=== PATIENT | female | born 1985 | race Caucasian/White ===

== ENCOUNTER 2017-08-04 19:29 | Inpatient (IN) | payer BC ==
--- NOTE | 2017-08-04 19:43 | PDOC ---
History of Present Illness - General Stated Complaint: SOB Time Seen by Provider: 08/04/17 19:38 - History of Present Illness Initial Comments: 08/04/17 20:36 32 yo F with h/o HTN, anxiety disorder, and anorexia nervosa, who arrives BIBA from outside facility, and urgent care w/ SOB. Patient reports 3 weeks of SOB at rest and increased Reyes. Patient states she had recent dx. of acute bronchitis one week ago w/ no underlying lung dz. asthma/COPD. Symptoms have been refractory to duoneb and steroid therapy. On azithromycin for gastroparesis. Now with retrosternal chest pressure, and wheezing. Denies N/V, F /C, cough, leg swelling. Denies tobacco use. Denies h/o DVT/PE, calf tenderness , hemoptysis, pleuritic chest pain, immobilization, travel, trauma or surgery w/ in 6 weeks, OCP use, hypercoaguable disorder, or malignancy. Reports h/o multiple chest CT scans to r/o esophageal perforation and as part of HTN workup. Denies abdominal pain, urinary complaints, diarrhea,constipation, lightheadedness, weakness, sensory changes. Past History - Past Medical History Allergies/Adverse Reactions: Allergies Allergy/AdvReac Type Severity Reaction Status Date / Time lamotrigine [From Lamictal] Allergy Verified 08/04/17 21:22 Home Medications: Ambulatory Orders Azithromycin 250 mg PO DAILY 08/04/17 Clonazepam [Klonopin] 1.25 mg PO BID 08/04/17 Desvenlafaxine Succinate [Pristiq ER] 25 mg PO DAILY 08/04/17 Fluvoxamine Maleate [Luvox -] 25 mg PO DAILY 08/04/17 Lisinopril 5 mg PO PRN 08/04/17 Spironolactone 25 mg PO DAILY 08/04/17 Review of Systems - Review of Systems Comments:: 08/04/17 19:42 GENERAL/CONSTITUTIONAL: No fever or chills. No weakness. HEAD, EYES, EARS, NOSE AND THROAT: No change in vision. No ear pain or discharge. No sore throat. CARDIOVASCULAR: + chest pain and shortness of breath RESPIRATORY: + SOB. No cough, or hemoptysis. GASTROINTESTINAL: No nausea, vomiting, diarrhea or constipation. GENITOURINARY: No dysuria, frequency, or change in urination. MUSCULOSKELETAL: No joint or muscle swelling or pain. No neck or back pain. SKIN: No rash NEUROLOGIC: No headache, vertigo, loss of consciousness, or change in strength/ sensation. ENDOCRINE: No increased thirst. No abnormal weight change HEMATOLOGIC/LYMPHATIC: No anemia, easy bleeding, or history of blood clots. ALLERGIC/IMMUNOLOGIC: No hives or skin allergy. *Physical Exam - Vital Signs Last Vital Signs Temp Pulse Resp BP Pulse Ox 98.6 F 110 H 20 144/124 100 08/04/17 20:02 08/05/17 02:49 08/05/17 02:01 08/05/17 02:49 08/05/17 02:01 - Physical Exam Comments: 08/04/17 19:42 GENERAL: Anxious appearing and tremulous. Awake, alert, and fully oriented. HEAD: No signs of trauma, normocephalic, atraumatic EYES: PERRLA, EOMI, sclera anicteric, conjunctiva clear ENT: Hearing grossly normal, nares patent, oropharynx clear without exudates. Moist mucosa NECK: Normal ROM, supple, no lymphadenopathy, JVD, or masses LUNGS: Diffuse insp lung sounds. Absent stridor. Speaks full sentences. HEART: Regular rate and rhythm, normal S1 and S2, no murmurs, rubs or gallops, peripheral pulses normal and equal bilaterally. EXTREMITIES : Normal inspection, Normal range of motion, no edema. No clubbing or cyanosis. SKIN: Warm, Dry, normal turgor, no rashes or lesions noted ED Treatment Course - LABORATORY CBC & Chemistry Diagram: 08/05/17 00:10 08/05/17 00:10 - ADDITIONAL ORDERS Additional order review: Laboratory Results 08/05/17 08/05/17 08/04/17 02:30 00:10 21:00 Anticoagulation Therapy No Result Required. Puncture Site No Result Required. ABG pH 7.31 L ABG pCO2 at Pt Temp 44.0 ABG pO2 at Pt Temp 235.0 H* ABG HCO3 21.7 L ABG O2 Sat (Measured) 99.2 H ABG O2 Content 20.3 ABG Base Excess -4.0 L Michael Test No Result Required. Carboxyhemoglobin 0.4 L Methemoglobin 1.1 O2 Delivery Device No Result Required. Oxygen Flow Rate No Result Required. Vent Mode No Result Required. Vent Rate No Result Required. Mechanical Rate No Result Required. Pressure Support Vent No Result Required. Sodium 136 Potassium 3.7 Chloride 98 Carbon Dioxide 27 Anion Gap 11 BUN 13 Creatinine 0.7 Creat Clearance w eGFR > 60 Random Glucose 176 H Calcium 8.5 Total Bilirubin 0.2 AST 13 L ALT 28 Alkaline Phosphatase 55 Total Protein 7.6 Albumin 4.0 Urine Color Straw Urine Appearance Clear Urine pH 7.0 Ur Specific [place] 1.010 Urine Protein Negative Urine Glucose (UA) Negative Urine Ketones Negative Urine Blood Negative Urine Nitrite Negative Urine Bilirubin Negative Urine Urobilinogen Negative Ur Leukocyte Esterase Negative Urine HCG, Qual Negative 08/05/17 00:10 RBC 4.45 MCV 97.1 H MCHC 34.5 RDW 11.5 L MPV 7.9 Neutrophils % 95.2 H Lymphocytes % 4.0 L Monocytes % 0.6 L Eosinophils % 0.0 Basophils % 0.2 - RADIOLOGY Radiology Studies Ordered: Category Date Time Status CHEST CTA [CT] Stat CT Scan 08/05/17 00:06 Taken CXRPORT [CHEST X-RAY PORTABLE*] [RAD] Stat Radiology 08/04/17 21:29 Taken - Medications Given in the ED: ED Medications Discontinued Medications Generic Name Dose Route Start Last Admin Trade Name Freq PRN Reason Stop Dose Admin Albuterol/Ipratropium 1 amp 08/04/17 20:45 08/04/17 23:25 Duoneb - NEB 08/04/17 21:31 1 amp Q15M HARRIS Administration Amlodipine Besylate 10 mg 08/04/17 23:13 08/04/17 23:39 Norvasc - PO 08/04/17 23:14 10 mg ONCE ONE Administration Sodium Chloride 1,000 mls @ 1,000 mls/hr 08/05/17 00:01 08/05/17 01:00 Normal Saline - IV 08/05/17 01:00 1,000 mls/hr ASDIR STA Administration Labetalol HCl 10 mg 08/05/17 02:06 08/05/17 02:30 Normodyne Injection - IVPUSH 08/05/17 02:07 10 mg ONCE ONE Administration Lisinopril 5 mg 08/04/17 23:14 08/04/17 23:39 Prinivil PO 08/04/17 23:15 5 mg ONCE ONE Administration Prednisone 60 mg 08/04/17 20:56 08/04/17 21:08 Deltasone - PO 08/04/17 20:57 60 mg ONCE ONE Administration Medical Decision Making - Medical Decision Making 08/04/17 20:50 32 yo F with h/o HTN, anxiety disorder, anorexia nervosa, and recent bronchitis who arrives BIBA from outside facility, and urgent care w/ report of 3 weeks of SOB at rest and increased Reyes, w/ increased exacerbation w/in 24 hours. Symptoms have been refractory to duoneb and steroid therapy. On azithromycin for gastroparesis. + Chest pressure. Denies N/V, F/C, cough, abdominal pain, urinary complaints, diarrhea,constipation, lightheadedness, weakness, sensory changes. leg swelling. Denies tobacco use. Physical exam noteable for anxious appearing, tremulous, and insp lung sounds with abent rhonci or rales. Will consider asthma vs. PNA. Although pt. with low risk for PE based on weils criteria, will consider PE based on tachycardia, SOB, and refractory to medical management SOB. Symptoms may be 2/2 pychogenic induced SOB, or anxiety related disorder. ED Course: EKG, CXR Duoneb, Prednisone 08/04/17 20:51 08/04/17 21:29 UA: Neg EKG: NSR with diffuse artifact. Absent FABIENNE. Normal axis and interval. 08/04/17 22:18 CXR: Unremarkable on preliminary read. 08/04/17 22:20 Chest CTA. 08/05/17 02:43 ABG: pH 7.31/ PCO2: 44 / P02 235 / HC03 21.7 Pt. with cont'd resp distress. Pt. admitted to med/surg obs Dr. Márquez *DC/Admit/Observation/Transfer Diagnosis at time of Disposition: SOB (shortness of breath) - Discharge Dispostion Decision to Admit order Date/Time: Decision to Admit Order Category Date Time Status Decision to Admit to Hospital Routine Admission 08/05/17 03:08 Ordered - Referrals - Patient Instructions Printed Discharge Instructions: DI for Shortness of Breath Additional Instructions: Please return to the emergency department with any new or worsening symptoms or concerns. Please follow up with your primary care physician within 72 hours. - Post Discharge Activity - Attestations Physician Attestion: 08/04/17 19:43 I attest to the information provided in this note.
[2017-08-04] MEDS ORDERED: predniSONE 20 MG TABLET (UD) PO ONE (20:56)
[2017-08-04] MEDS: ALBUTEROL SO4 2.5/IPRATROPIUM 0.5 INH SOL 3 ML VIAL.NEB. NEB SCH ×3 (21:08→23:25)
[2017-08-04 21:12] LABS: HCG,QUALITATIVE URINE NEGATIVE
[2017-08-04 21:13] LABS: URINE APPEARANCE CLEAR; URINE BILIRUBIN NEGATIVE (<2.0 mg/dL); URINE BLOOD NEGATIVE (NEGATIVE); URINE COLOR STRAW; URINE GLUCOSE (UA) NEGATIVE (NEGATIVE); URINE KETONE NEGATIVE (NEGATIVE); URINE LEUK ESTERASE NEGATIVE (NEGATIVE); URINE NITRITE NEGATIVE (NEGATIVE); URINE PROTEIN NEGATIVE (NEGATIVE); URINE UROBILINOGEN NEGATIVE mg/dL (0.2-1.0)
[2017-08-04] MEDS ORDERED: amLODIPine BESYLATE 10 MG TABLET (FP) PO ONE (23:13)
[2017-08-04] MEDS ORDERED: LISINOPRIL 5 MG TABLET (FP) PO ONE (23:14)
[2017-08-04] MEDS ORDERED: amLODIPine BESYLATE 5 MG TABLET (FP) ONE (23:28)
[2017-08-04] MEDS ORDERED: LISINOPRIL 20 MG TABLET (FP) ONE (23:29)
[2017-08-05] MEDS ORDERED: SODIUM CHLORIDE 1,000 ML IV STA (00:01)
--- NOTE | 2017-08-05 00:33 | PDOC ---
Attending Attestation - Resident Resident Name: Nader Lakhani - ED Attending Attestation I have performed the following: I have examined & evaluated the patient, The case was reviewed & discussed with the resident, I agree w/resident's findings & plan, Exceptions are as noted Heart Score/ECG Review - ECG Impressions Comment:: EKG read 21:18- NSR 88 bpm, no acute ST/T changes. +Motion artifact
[2017-08-05 01:10] LABS: BASO % 0.2 % (0-2.0); HEMATOCRIT 43.2 % (32.4-45.2); HEMOGLOBIN 14.9 GM/dL (10.7-15.3); MCH 33.5 pg (25.7-33.7); MCHC 34.5 g/dl (32.0-36.0); MEAN CELL VOLUME 97.1 fl (80-96); MEAN PLT VOLUME 7.9 fl (7.5-11.1); MONO % 0.6 % (3.8-10.2); NEUT % 95.2 % (42.8-82.8); PLATELET COUNT 219 K/MM3 (134-434); RBC 4.45 M/mm3 (3.60-5.2); RDW 11.5 % (11.6-15.6); WHITE BLOOD COUNT 8.6 K/mm3 (4.0-10.0)
[2017-08-05 01:25] LABS: ALK PHOS 55 U/L (45-117); ANION GAP 11 (8-16); BILIRUBIN,TOTAL 0.2 mg/dL (0.2-1.0); BLOOD UREA NITROGEN 13 mg/dL (7-18); CALCIUM 8.5 mg/dL (8.5-10.1); CHLORIDE 98 mmol/L (98-107); CO2 27 mmol/L (21-32); CREATININE 0.7 mg/dL (0.55-1.02); GLUCOSE,RANDOM 176 mg/dL (74-106); POTASSIUM 3.7 mmol/L (3.5-5.1); SGOT/AST 13 U/L (15-37); SGPT/ALT 28 U/L (12-78); SODIUM 136 mmol/L (136-145); TOT PROT 7.6 g/dl (6.4-8.2)
[2017-08-05] MEDS ORDERED: LABETALOL HCL 5 MG/1 ML (100MG/20 ML VIAL) IVPUSH ONE (02:06)
[2017-08-05] MEDS ORDERED: LABETALOL HCL 5 MG/1 ML (200MG/40ML VIAL) IVPB ONE (02:06)
[2017-08-05 02:35] LABS: ARTERIAL BLD GAS O2 SATURATION 99.2 % (90-98.9); ARTERIAL BLOOD GAS pH 7.31 (7.35-7.45); CARBOXYHEMOGLOBIN 0.4 gm% (0.5-2.0)
--- NOTE | 2017-08-05 04:04 | HP ---
CHIEF COMPLAINT: PCP:none HISTORY OF PRESENT ILLNESS: 32F pmh eating disorder, anxietry, HTN presents with SOB for past week progressively worse. SHe came to an urgent care facility where they found her to be hypoxic and tachycardia and sent her to ED. She denies fevers, has a dry cough, chest pain with cough. no urinary or bowel changes Reports a prolonged hospital stay for a month a few years ago in [place] whenre they did extensive evaluation for her HTN but was unrevealing. currently lives in a facility for treatment of eating disorder ER course was notable for: (1)IVF (2)BP control (3)Nebs and Prednisone Recent Travel:no PAST MEDICAL HISTORY:eating disorder, anxietry, HTN PAST SURGICAL HISTORY: Social History: Smoking:no Alcohol:no Drugs: no Family History:n/c Allergies lamotrigine [From Lamictal] Allergy (Verified 08/04/17 21:22) HOME MEDICATIONS: Home Medications Medication Instructions Recorded Azithromycin 250 mg PO DAILY 08/04/17 Clonazepam [Klonopin] 1.25 mg PO BID 08/04/17 Desvenlafaxine Succinate [Pristiq 25 mg PO DAILY 08/04/17 ER] Fluvoxamine Maleate [Luvox -] 25 mg PO DAILY 08/04/17 Lisinopril 5 mg PO PRN 08/04/17 Spironolactone 25 mg PO DAILY 08/04/17 REVIEW OF SYSTEMS CONSTITUTIONAL: Absent: fever, chills, diaphoresis, generalized weakness, malaise, loss of appetite, weight change HEENT: Absent: rhinorrhea, nasal congestion, throat pain, throat swelling, difficulty swallowing, mouth swelling, ear pain, eye pain, visual changes CARDIOVASCULAR: Absent: chest pain, syncope, palpitations, irregular heart rate, lightheadedness , peripheral edema RESPIRATORY: Absent: cough, shortness of breath, dyspnea with exertion, orthopnea, wheezing, stridor, hemoptysis GASTROINTESTINAL: Absent: abdominal pain, abdominal distension, nausea, vomiting, diarrhea, constipation, melena, hematochezia GENITOURINARY: Absent: dysuria, frequency, urgency, hesitancy, hematuria, flank pain, genital pain MUSCULOSKELETAL: Absent: myalgia, arthralgia, joint swelling, back pain, neck pain SKIN: Absent: rash, itching, pallor HEMATOLOGIC/IMMUNOLOGIC: Absent: easy bleeding, easy bruising, lymphadenopathy, frequent infections ENDOCRINE: Absent: unexplained weight gain, unexplained weight loss, heat intolerance, cold intolerance NEUROLOGIC: Absent: headache, focal weakness or paresthesias, dizziness, unsteady gait, seizure, mental status changes, bladder or bowel incontinence PSYCHIATRIC: Absent: anxiety, depression, suicidal or homicidal ideation, hallucinations. PHYSICAL EXAMINATION Vital Signs - 24 hr 08/04/17 08/05/17 08/05/17 20:02 02:01 02:49 Temperature 98.6 F Pulse Rate 89 Pulse Rate [ 120 H 110 H Right Radial] Respiratory 20 20 Rate Blood Pressure 149/119 Blood Pressure 176/139 144/124 [Right Arm] O2 Sat by Pulse 95 100 Oximetry (%) GENERAL: Awake, alert, and fully oriented, anxious appearing HEAD: Normal with no signs of trauma. EYES: Pupils equal, round and reactive to light, extraocular movements intact, sclera anicteric, conjunctiva clear. No lid lag. EARS, NOSE, THROAT: Ears normal, nares patent, does not open mouth wide. Moist mucous membranes. NECK: Normal range of motion, supple without lymphadenopathy, JVD, or masses. LUNGS: Breath sounds equal, clear to auscultation bilaterally. inspiratory musical note transmitted from upper airway. HEART: Regular rate and rhythm, normal S1 and S2 without murmur, rub or gallop. ABDOMEN: Soft, nontender, not distended, normoactive bowel sounds, no guarding, no rebound, no masses. No hepatomegaly or splenomegaly. MUSCULOSKELETAL: Normal range of motion at all joints. No bony deformities or tenderness. No CVA tenderness. UPPER EXTREMITIES: 2+ pulses, warm, well-perfused. No cyanosis. No clubbing. No peripheral edema. LOWER EXTREMITIES: 2+ pulses, warm, well-perfused. No calf tenderness. No peripheral edema. NEUROLOGICAL: Cranial nerves II-XII intact. Normal speech. Normal gait. PSYCHIATRIC: Cooperative. anxious SKIN: Warm, dry, normal turgor, no rashes or lesions noted, normal capillary refill. Laboratory Results - last 24 hr 08/04/17 08/05/17 08/05/17 21:00 00:10 00:10 WBC 8.6 RBC 4.45 Hgb 14.9 Hct 43.2 MCV 97.1 H MCH 33.5 MCHC 34.5 RDW 11.5 L Plt Count 219 MPV 7.9 Neutrophils % 95.2 H Lymphocytes % 4.0 L Monocytes % 0.6 L Eosinophils % 0.0 Basophils % 0.2 Anticoagulation Therapy Puncture Site ABG pH ABG pCO2 at Pt Temp ABG pO2 at Pt Temp ABG HCO3 ABG O2 Sat (Measured) ABG O2 Content ABG Base Excess Michael Test Carboxyhemoglobin Methemoglobin O2 Delivery Device Oxygen Flow Rate Vent Mode Vent Rate Mechanical Rate Pressure Support Vent Sodium 136 Potassium 3.7 Chloride 98 Carbon Dioxide 27 Anion Gap 11 BUN 13 Creatinine 0.7 Creat Clearance w eGFR > 60 Random Glucose 176 H Calcium 8.5 Total Bilirubin 0.2 AST 13 L ALT 28 Alkaline Phosphatase 55 Total Protein 7.6 Albumin 4.0 Urine Color Straw Urine Appearance Clear Urine pH 7.0 Ur Specific [place] 1.010 Urine Protein Negative Urine Glucose (UA) Negative Urine Ketones Negative Urine Blood Negative Urine Nitrite Negative Urine Bilirubin Negative Urine Urobilinogen Negative Ur Leukocyte Esterase Negative Urine HCG, Qual Negative 08/05/17 02:30 WBC RBC Hgb Hct MCV MCH MCHC RDW Plt Count MPV Neutrophils % Lymphocytes % Monocytes % Eosinophils % Basophils % Anticoagulation Therapy No Result Required. Puncture Site No Result Required. ABG pH 7.31 L ABG pCO2 at Pt Temp 44.0 ABG pO2 at Pt Temp 235.0 H* ABG HCO3 21.7 L ABG O2 Sat (Measured) 99.2 H ABG O2 Content 20.3 ABG Base Excess -4.0 L Michael Test No Result Required. Carboxyhemoglobin 0.4 L Methemoglobin 1.1 O2 Delivery Device No Result Required. Oxygen Flow Rate No Result Required. Vent Mode No Result Required. Vent Rate No Result Required. Mechanical Rate No Result Required. Pressure Support Vent No Result Required. Sodium Potassium Chloride Carbon Dioxide Anion Gap BUN Creatinine Creat Clearance w eGFR Random Glucose Calcium Total Bilirubin AST ALT Alkaline Phosphatase Total Protein Albumin Urine Color Urine Appearance Urine pH Ur Specific [place] Urine Protein Urine Glucose (UA) Urine Ketones Urine Blood Urine Nitrite Urine Bilirubin Urine Urobilinogen Ur Leukocyte Esterase Urine HCG, Qual second abg on RA : ASSESSMENT/PLAN: 32F with SOB, hypoxia, tachycardia likely from an upper airway bronchitis. hypoxia maybe from severe bronchospasm. 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 negative for any lung pathology or PE start duonebs q4 prednisone 40 daily influenza swab continue supp O2 with NC 3L continuous pulse ox HTN spironolactone, lisinopril hold prazosin 13mg HS and monitor if BP needs garstroparesis azithromycin, miralax Depression, anxiety, Eating disorder continue trazadone 50 HS klonopin 0.5 QAM and 1.25 QPM pristiq 50 daily dvt ppx Visit type - Emergency Visit Emergency Visit: Yes ED Registration Date: 08/05/17 Care time: The patient presented to the Emergency Department on the above date and was hospitalized for further evaluation of their emergent condition. - New Patient This patient is new to me today: Yes Date on this admission: 08/05/17 - Critical Care Critical Care patient: No Hospitalist Screening - Colonoscopy Questionnaire Colonoscopy Questionnaire: Colonoscopy Questionnaire - Patient: 50 - 75 years old and never had a screening colonoscopy: No History of colon or rectal polyps, or CA: No History of IBD, Crohn's disease or UC: No History of abdominal radiation therapy as a child: No - Relative: 1 with colon or rectal CA, or polyps at age 60 or younger: Unknown Colon or rectal CA diagnosed at age 45 or younger: Unknown Multiple relatives with colon or rectal CA: Unknown - Outcome: Screening Result: Negative Screen
[2017-08-05 04:20] LABS: ARTERIAL BLD GAS O2 SATURATION 87.7 % (90-98.9); ARTERIAL BLOOD GAS BASE EXCESS -2.4 meq/l (-2-2); ARTERIAL BLOOD GAS PCO2 52.4 mmHg (35-45); ARTERIAL BLOOD GAS pH 7.29 (7.35-7.45)
[2017-08-05] MEDS: INSULIN SLIDING SCALE (NOVOLOG) 1 VIAL SQ SCH ×2 (06:20→10:59)
[2017-08-05] MEDS: IPRATROPIUM BR 0.02% 0.5 MG/2.5 ML VIAL.NEB. NEB SCH ×5 (06:21→21:05)
[2017-08-05] MEDS: ALBUTEROL SO4 0.083% IH SOL 2.5 MG/3 ML VIAL.NEB. NEB SCH ×2 (06:21→12:32)
[2017-08-05] MEDS: VENLAFAXINE HCL 75 MG E.R. CAPSULES (FP) PO SCH (08:59)
[2017-08-05] MEDS: AZITHROMYCIN 250 MG TABLET PO SCH (09:00)
[2017-08-05] MEDS: THIAMINE HCL 100 MG TABLET (FP) PO SCH (09:00)
[2017-08-05] MEDS: SPIRONOLACTONE 25 MG TABLET (FP) PO SCH ×2 (09:00→21:08)
[2017-08-05] MEDS: ENOXAPARIN NA (PORCINE) 40 MG/0.4 ML DISP.SYRIN SQ SCH (09:01)
[2017-08-05] MEDS: clonazePAM 0.5 MG TABLET PO SCH ×2 (09:01→21:07)
[2017-08-05] MEDS: POLYETHYLENE GLYCOL 3350 119 GM BTL PO SCH ×2 (09:01→21:09)
[2017-08-05] MEDS ORDERED: LISINOPRIL 10 MG TABLET (FP) PO SCH (10:00)
[2017-08-05] MEDS ORDERED: DESVENLAFAXINE SUCCINATE 25 MG PO SCH (10:00)
[2017-08-05] MEDS ORDERED: predniSONE 20 MG TABLET (UD) PO SCH (10:00)
[2017-08-05 12:16] VITALS: BMI 21.7
[2017-08-05] MEDS ORDERED: hydrALAZINE HCL 10 MG TABLET PO ONE (14:48)
--- NOTE | 2017-08-05 14:48 | PN ---
Progress Note (short form) - Note Progress Note: c/o SOB and non productive cough x3 weeks. progressively worsening and now at rest. O2 level dropping to 72% on RA. says she was seen in urgent care last week and was given steroids po with no improvement. but has had symptoms for the past week and half. only new medication was a probiotic that was started around that time. does get ketamin injections once a month since january 2017. has had a extensive workup for HTN a few years ago which was negative and BP has been controlled with spirolactone BID and lisinopril prn which she takes at least once a week. some mild CP. no fever, chills, N/v/C/D denies smoking tobacco or other drugs no autoimmune diseases in the family Current Medications Generic Name Dose Route Start Last Admin Trade Name Freq PRN Reason Stop Dose Admin Albuterol Sulfate 1 amp 08/05/17 06:00 08/05/17 12:32 Ventolin 0.083% Nebulizer Soln - NEB 1 amp Q4HWA HARRIS Administration Azithromycin 250 mg 08/05/17 10:00 08/05/17 09:00 Zithromax - PO 250 mg DAILY HARRIS Administration Clonazepam 0.5 mg 08/05/17 10:00 08/05/17 09:01 Klonopin - PO 0.5 mg DAILY HARRIS Administration Clonazepam 1.25 mg 08/05/17 22:00 Klonopin - PO HS HARRIS Enoxaparin Sodium 40 mg 08/05/17 10:00 08/05/17 09:01 Lovenox - SQ 40 mg DAILY HARRIS Administration Fluvoxamine Maleate 150 mg 08/05/17 10:00 08/05/17 09:01 Luvox - PO 08/05/17 22:00 Not Given BID HARRIS Insulin Aspart 1 vial 08/05/17 07:00 08/05/17 10:59 Novolog Vial Sliding Scale - SQ Not Given TIDAC [facility] Protocol Ipratropium [place] 1 amp 08/05/17 06:00 08/05/17 12:31 Atrovent 0.02% Nebulizer - NEB 1 amp Q4HWA HARRIS Administration Lisinopril 10 mg 08/05/17 10:00 08/05/17 09:00 Prinivil PO 10 mg DAILY HARRIS Administration Polyethylene Glycol 17 gm 08/05/17 10:00 08/05/17 09:01 Miralax (For Daily Use) - PO 17 mg BID HARRIS Administration Prednisone 60 mg 08/05/17 10:00 08/05/17 09:00 Deltasone - PO 60 mg DAILY HARRIS Administration Spironolactone 25 mg 08/05/17 10:00 08/05/17 09:00 Aldactone - PO 25 mg BID HARRIS Administration Thiamine HCl 100 mg 08/05/17 10:00 08/05/17 09:00 Vitamin B1 - PO 100 mg DAILY HARRIS Administration Trazodone HCl 50 mg 08/05/17 22:00 Desyrel - PO HS HARRIS Venlafaxine HCl 75 mg 08/05/17 08:00 08/05/17 08:59 Effexor Xr - PO Not Given DAILY@0800 [facility] Last Vital Signs Temp Pulse Resp BP Pulse Ox 98.1 F 111 H 20 140/112 100 08/05/17 14:16 08/05/17 14:16 08/05/17 14:16 08/05/17 14:16 08/05/17 08:00 General mild respiratory distress. CV S1 S2 tachy Lungs coarse breath sounds, diffuse wheezing, poor inspiratory effort Abdomen soft NT/ND Extremities no pedal edema CBCD WBC 8.6 K/mm3 (4.0-10.0) 08/05/17 00:10 RBC 4.45 M/mm3 (3.60-5.2) 08/05/17 00:10 Hgb 14.9 GM/dL (10.7-15.3) 08/05/17 00:10 Hct 43.2 % (32.4-45.2) 08/05/17 00:10 MCV 97.1 fl (80-96) H 08/05/17 00:10 MCHC 34.5 g/dl (32.0-36.0) 08/05/17 00:10 RDW 11.5 % (11.6-15.6) L 08/05/17 00:10 Plt Count 219 K/MM3 (134-434) 08/05/17 00:10 MPV 7.9 fl (7.5-11.1) 08/05/17 00:10 CMP Sodium 136 mmol/L (136-145) 08/05/17 00:10 Potassium 3.7 mmol/L (3.5-5.1) 08/05/17 00:10 Chloride 98 mmol/L (98-107) 08/05/17 00:10 Carbon Dioxide 27 mmol/L (21-32) 08/05/17 00:10 Anion Gap 11 (8-16) 08/05/17 00:10 BUN 13 mg/dL (7-18) 08/05/17 00:10 Creatinine 0.7 mg/dL (0.55-1.02) 08/05/17 00:10 Creat Clearance w eGFR > 60 (>60) 08/05/17 00:10 Calcium 8.5 mg/dL (8.5-10.1) 08/05/17 00:10 Total Bilirubin 0.2 mg/dL (0.2-1.0) 08/05/17 00:10 AST 13 U/L (15-37) L 08/05/17 00:10 ALT 28 U/L (12-78) 08/05/17 00:10 Alkaline Phosphatase 55 U/L (45-117) 08/05/17 00:10 Total Protein 7.6 g/dl (6.4-8.2) 08/05/17 00:10 Albumin 4.0 g/dl (3.4-5.0) 08/05/17 00:10 Microbiology 08/05/17 06:08 Influenza Types A,B Antigen (LUCI) - Final Nasopharyngeal Swab - Final A/P 32 yo F with PMH eating disorder, gastroparesis and HTN presenting SOB and non productive cough was found to be hypoxic requiring 4L NC 1. Acute hypoxic respiratory failure- currently 97% on 3L NC. CTA done and negative for PE. no lung pathology identified. start solumedrol 80mg Q8H, magnesium 2g, ceftriaxone 2g, robitussin prn. switch nebs to ipatropium due to tachycardia. consult pulmonary. will d/c lisinopril as this can cause cough. may benefit from bronch 2. HTN urgency- likely exacerbated due to breathing. d/c acei. start hydralazine. cont spirolactone. switch to low salt diet 3. Eating disorder 4. depression- on luvox and effexor 5. gastroparesis- on azithromycin? will need to verify if this accurate 6. DVT ppx- lovenox Visit type - Emergency Visit Emergency Visit: Yes ED Registration Date: 08/05/17 Care time: The patient presented to the Emergency Department on the above date and was hospitalized for further evaluation of their emergent condition. - New Patient This patient is new to me today: Yes Date on this admission: 08/05/17 - Critical Care Critical Care patient: No - Discharge Referral Referred to [facility] No
[2017-08-05] MEDS ORDERED: MAGNESIUM SULF 50% (8.12 MEQ/2 ML-1 GM VIAL) IVPB ONE (15:10)
[2017-08-05] MEDS ORDERED: IPRATROPIUM BR 0.02% 0.5 MG/2.5 ML VIAL.NEB. NEB PRN (15:12)
[2017-08-05] MEDS ORDERED: methylPREDNISolone NA SUCC 1000 MG/8 ML VIAL IVPB SCH (15:15)
[2017-08-05] MEDS ORDERED: CEFTRIAXONE 2 GM in DEXTROSE 5%-WATER - 100 ML IVPB ONE (16:00)
[2017-08-05] MEDS: guaiFENesin 200 MG/10 ML 10 ML UNIT-DOSE CUPS PO PRN ×2 (16:29→21:07)
[2017-08-05] MEDS ORDERED: MAGNESIUM SULFATE IN WATER 2 GM/50 ML IVPB IVPB ONE (16:30)
[2017-08-05] MEDS: methylPREDNISolone NA SUCC 40 MG/1 ML VIAL IVPB SCH (17:06)
[2017-08-05] MEDS ORDERED: LORazepam 1 MG TABLET PO ONE (19:45)
[2017-08-05] MEDS: traZODone HCL 50 MG TABLET (FP) PO SCH (21:08)
[2017-08-05] MEDS: hydrALAZINE HCL 10 MG TABLET PO SCH (21:08)
[2017-08-05] MEDS ORDERED: PT OWN MED DRAWER 7, Y5N ONE (23:35)
[2017-08-06] MEDS: methylPREDNISolone NA SUCC 40 MG/1 ML VIAL IVPB SCH ×3 (01:03→17:46)
[2017-08-06] MEDS: IPRATROPIUM BR 0.02% 0.5 MG/2.5 ML VIAL.NEB. NEB SCH ×5 (06:09→21:20)
[2017-08-06 07:26] LABS: BASO % 0.1 % (0-2.0); HEMATOCRIT 45.1 % (32.4-45.2); HEMOGLOBIN 15.3 GM/dL (10.7-15.3); LYMPH % 5.3 % (8-40); MCHC 33.9 g/dl (32.0-36.0); MEAN CELL VOLUME 97.4 fl (80-96); MEAN PLT VOLUME 7.9 fl (7.5-11.1); MONO % 1.4 % (3.8-10.2); NEUT % 93.2 % (42.8-82.8); PLATELET COUNT 247 K/MM3 (134-434); RBC 4.63 M/mm3 (3.60-5.2); RDW 11.7 % (11.6-15.6); WHITE BLOOD COUNT 16.2 K/mm3 (4.0-10.0)
[2017-08-06] MEDS ORDERED: PT OWN MED DRAWER 7, Y5N ONE ×2 (07:51→18:46)
[2017-08-06] MEDS: SPIRONOLACTONE 25 MG TABLET (FP) PO SCH ×2 (08:59→21:47)
[2017-08-06] MEDS: THIAMINE HCL 100 MG TABLET (FP) PO SCH (08:59)
[2017-08-06] MEDS: AZITHROMYCIN 250 MG TABLET PO SCH (08:59)
[2017-08-06] MEDS: ENOXAPARIN NA (PORCINE) 40 MG/0.4 ML DISP.SYRIN SQ SCH (08:59)
[2017-08-06] MEDS: clonazePAM 0.5 MG TABLET PO SCH ×2 (09:00→21:46)
[2017-08-06] MEDS: VENLAFAXINE HCL 75 MG E.R. CAPSULES (FP) PO SCH (09:00)
[2017-08-06] MEDS: hydrALAZINE HCL 10 MG TABLET PO SCH ×2 (09:00→21:47)
[2017-08-06] MEDS: POLYETHYLENE GLYCOL 3350 119 GM BTL PO SCH ×2 (09:06→21:47)
--- NOTE | 2017-08-06 09:29 | PN ---
Teaching Attending Note Name of Resident: Alejandra Younger ATTENDING PHYSICIAN STATEMENT I saw and evaluated the patient. I reviewed the resident's note and discussed the case with the resident. I agree with the resident's findings and plan as documented. SUBJECTIVE:c/o dyspnea at rest but overall improved since yesterday. had episode in the evening where she felt more short of breath but was also anxious and improved with low dose ativan. denies Cp, fever, chills, N/V/C/D OBJECTIVE: Last Vital Signs Temp Pulse Resp BP Pulse Ox 98.1 F 81 20 157/105 100 08/06/17 05:56 08/06/17 05:56 08/06/17 05:56 08/06/17 05:56 08/05/17 20:46 General NAD CV S1 S2 RRR Lungs very tight, poor inspiratory effort. diffuse wheezing ASSESSMENT AND PLAN: 32 yo F with PMH eating disorder, gastroparesis and HTN presenting SOB and non productive cough was found to be hypoxic requiring 4L NC 1. Acute hypoxic respiratory failure- states she feels better today and having lower O2 requirement however inspiratory effort very poor. small response to steroids. indicating small airway reactive. currently 98% on 2L NC. O2 drops to 92% on 1L. will do echo with PFO study to r/o pulm HTN as can also cause hypoxia. awaiting pulmonary recommendations. cont Medrol same dosing, Ceftriaxone day 2. nebs RTC and PRN. 2. HTN urgency-hx of essential HTN with extensive workup to eliminate 2ndary causes. improved on current therapy. will cont for now. 3. Eating disorder 4. depression- on luvox and effexor 5. anxiety- klonopin HS 6. gastroparesis- on azithromycin? will need to verify if this accurate 7. DVT ppx- lovenox
[2017-08-06] MEDS: CEFTRIAXONE IN IS-OSM DEXTROSE 2 GM/50 ML BAG IVPB SCH (09:45)
[2017-08-06 11:07] LABS: CHLORIDE 103 mmol/L (98-107); POTASSIUM 4.1 mmol/L (3.5-5.1); SODIUM 138 mmol/L (136-145)
[2017-08-06 11:34] LABS: ALBUMIN 3.8 g/dl (3.4-5.0); ALK PHOS 52 U/L (45-117); ANION GAP 10 (8-16); BILIRUBIN,TOTAL 0.3 mg/dL (0.2-1.0); BLOOD UREA NITROGEN 19 mg/dL (7-18); CALCIUM 8.8 mg/dL (8.5-10.1); CO2 25 mmol/L (21-32); CREATININE 0.7 mg/dL (0.55-1.02); GLUCOSE,RANDOM 142 mg/dL (74-106); MAGNESIUM 2.8 mg/dL (1.8-2.4); SGOT/AST 11 U/L (15-37); SGPT/ALT 22 U/L (12-78); TOT PROT 7.4 g/dl (6.4-8.2)
--- NOTE | 2017-08-06 12:15 | CON.PULM ---
Consult Consult Specialty:: PULMONARY Referred by:: DEMI Reason for Consultation:: HYPOXIA - History of Present Illness Chief Complaint: SOB History of Present Illness: 32 yo F never smoker with h/o HTN, anxiety disorder, and anorexia nervosa, who arrives BIBA from outside facility, and urgent care w/ SOB. Patient reports 3 weeks of SOB at rest and increased JUAN. Patient states she had recent dx. of acute bronchitis one week ago. Symptoms have been refractory to duoneb and steroid therapy. Now with retrosternal chest pressure, and stridor. Denies tobacco use. Denies h/o DVT/PE, calf tenderness, hemoptysis, pleuritic chest pain, immobilization, travel, trauma or surgery w/in 6 weeks, OCP use, hypercoaguable disorder, or malignancy. Reports multiple chest CT scans to r/o esophageal perforation due to purging . - History Source History Provided By: Patient, Medical Record Limitations to Obtaining History: No Limitations - Past Medical History REGISTERED MEDICAL ASSISTANT: No: Alzheimer's Cardio/Vascular: No: AFIB Pulmonary: Yes: Bronchitis. No: Asthma, COPD, O2 Dependent, Pneumonia Gastrointestinal: No: Ascites Hepatobiliary: No: Cirrhosis Renal/: No: Renal Failure ...: No Heme/Onc: No: Anemia Musculoskeletal: No: Osteoarthritis Rheumatology: No: Fibromyalgia Endocrine: No: Zafar's Disease, Diabetes Mellitus - Past Surgical History Additional Surgical History: extensive scoliosis repair 10 years ago - Alcohol/Substance Use Hx Alcohol Use: No History of Substance Use: reports: None - Smoking History Smoking history: Never smoked Have you smoked in the past 12 months: No - Social History Place of : [facility] Home Medications - Allergies Allergies/Adverse Reactions: Allergies Allergy/AdvReac Type Severity Reaction Status Date / Time lamotrigine [From Lamictal] Allergy Verified 08/04/17 21:22 - Home Medications Home Medications: Ambulatory Orders Azithromycin 250 mg PO DAILY 08/04/17 Clonazepam [Klonopin] 1.25 mg PO BID 08/04/17 Desvenlafaxine Succinate [Pristiq ER] 25 mg PO DAILY 08/04/17 Fluvoxamine Maleate [Luvox -] 400 mg PO DAILY 08/04/17 Lisinopril 5 mg PO PRN 08/04/17 Spironolactone 25 mg PO DAILY 08/04/17 Family Disease History - Family Disease History Family History: Unremarkable Review of Systems - Review of Systems Constitutional: denies: Fever Eyes: denies: Blurred Vision HENT: reports: Throat Pain. denies: Epistaxis Neck: denies: Swollen Glands Cardiovascular: reports: Chest Pain, Shortness of Breath. denies: Edema, Palpitations Respiratory: reports: Cough, SOB, Wheezing. denies: Hemoptysis Gastrointestinal: reports: Indigestion, Vomiting, Other (recent binge/purging) Genitourinary: reports: No Symptoms Breasts: reports: No Symptoms Reported Musculoskeletal: reports: No Symptoms Integumentary: reports: No Symptoms Neurological: reports: No Symptoms Psychiatric: reports: Other (eating disorder) Physical Exam Vital Sings: Vital Signs Temperature 98.4 F 08/06/17 10:00 Pulse Rate 102 H 08/06/17 10:00 Respiratory Rate 20 08/06/17 10:00 Blood Pressure 151/131 08/06/17 10:00 O2 Sat by Pulse Oximetry (%) 100 08/06/17 09:00 Constitutional: Yes: Calm Eyes: Yes: EOM Intact HENT: Yes: Normocephalic Neck: Yes: Trachea Midline. No: Decreased ROM, Lymphadenopathy, Thyromegaly Cardiovascular: Yes: Regular Rate and Rhythm Respiratory: Yes: Stridor, Other (stridor is marked) Gastrointestinal: Yes: Soft Edema: No Neurological: Yes: Alert ...Motor Strength: WNL Labs: CBC, BMP 08/06/17 06:00 08/06/17 06:00 ABG Results ABG pH 7.29 (7.35-7.45) L 08/05/17 04:07 ABG pCO2 at Pt Temp 52.4 mmHg (35-45) H 08/05/17 04:07 ABG pO2 at Pt Temp 64.0 mmHg (80-100) L D 08/05/17 04:07 ABG HCO3 24.5 meq/L (22-26) 08/05/17 04:07 ABG O2 Sat (Measured) 87.7 % (90-98.9) L 08/05/17 04:07 ABG O2 Content 19.0 % vol (15-22) 08/05/17 04:07 ABG Base Excess -2.4 meq/l (-2-2) L 08/05/17 04:07 ALL LABS REVIEWED Imaging - Results Chest X-ray: Report Reviewed, Image Reviewed Cat Scan: Report Reviewed, Image Reviewed Problem List - Problems (1) Stridor Code(s): R06.1 - STRIDOR (2) Hypoxia Code(s): R09.02 - HYPOXEMIA (3) H/O spinal fusion Code(s): Z98.1 - ARTHRODESIS STATUS (4) Hypertension Code(s): I10 - ESSENTIAL (PRIMARY) HYPERTENSION Assessment/Plan STRIDOR POSSIBLY DUE TO UPPER AIRWAY PATHOLOGY ?NONIFECTIOUS EPIGLOTTISIS VS LARYNGEAL IRRITATION FROM PURGING NO REASON TO HAVE UNDERLYING LUNG DISEASE EXCEPT FOR AERONAUTICAL DRAFTER SCOLIOSIS AND SUBSEQUENT REPAIR WHICH WOULD IMPART A RESTRICTIVE VENTILATORY DEFECT. WILL ASK ENT TO EVALUATE WITH LARYNGOSCOPY/DECREASE STEROIDS/NO OBJECTION TO ANTIBIOTICS HUMIDIFIED O2/MAY NEED GI EVAL WITH EGD WILL FOLLOW Pat CANELA MD
[2017-08-06] MEDS ORDERED: clonazePAM 0.5 MG TABLET PO PRN (13:37)
[2017-08-06] MEDS ORDERED: ALBUTEROL SO4 0.042% IH SOL 1.25 MG/3 ML VIAL.NEB NEB PRN (13:38)
--- NOTE | 2017-08-06 18:05 | PN ---
Physical Exam: SUBJECTIVE: Patient seen and examined. She is still complaining of SOB, no overnight events. OBJECTIVE: Vital Signs Period Temp Pulse Resp BP Sys/Coulter Pulse Ox Last 24 Hr 97.7 F-98.4 F 81-131 20-20 135-161/89-131 100-100 GENERAL: The patient is awake, alert, and fully oriented, in no acute distress, on VM. HEAD: Normal with no signs of trauma. EYES: PERRL, extraocular movements intact, sclera anicteric, conjunctiva clear. ENT: oropharynx clear without exudates, moist mucous membranes. NECK: Trachea midline, full range of motion, supple. LUNGS: Breath sounds equal, clear to auscultation bilaterally, bilateral wheezes , no crackles, no accessory muscle use. HEART: Regular rate and rhythm, S1, S2 without murmur, rub or gallop. ABDOMEN: Soft, nontender, nondistended, normoactive bowel sounds, no guarding, no rebound, no hepatosplenomegaly, no masses. EXTREMITIES: 2+ pulses, warm,no edema. NEUROLOGICAL: Normal speech, no facial asymmetry, gait not observed. PSYCH: Normal mood, normal affect. SKIN: Warm, dry, normal turgor, no rashes, longitudinal scar along her spine. Laboratory Results - last 24 hr 08/06/17 08/06/17 06:00 06:00 WBC 16.2 H D RBC 4.63 Hgb 15.3 Hct 45.1 MCV 97.4 H MCH 33.0 MCHC 33.9 RDW 11.7 Plt Count 247 MPV 7.9 Neutrophils % 93.2 H Lymphocytes % 5.3 L D Monocytes % 1.4 L D Eosinophils % 0.0 Basophils % 0.1 Sodium 138 Potassium 4.1 Chloride 103 Carbon Dioxide 25 Anion Gap 10 BUN 19 H Creatinine 0.7 Creat Clearance w eGFR > 60 Random Glucose 142 H Calcium 8.8 Magnesium 2.8 H Total Bilirubin 0.3 D AST 11 L ALT 22 Alkaline Phosphatase 52 Total Protein 7.4 Albumin 3.8 Active Medications Generic Name Dose Route Start Last Admin Trade Name Freq PRN Reason Stop Dose Admin Albuterol Sulfate 1 amp 08/06/17 13:38 08/06/17 13:03 Ventolin 0.042trength) - NEB 1 amp Q4H PRN Administration SHORT OF BREATH/WHEEZING Azithromycin 250 mg 08/05/17 10:00 08/06/17 08:59 Zithromax - PO 250 mg DAILY HARRIS Administration Clonazepam 0.5 mg 08/05/17 10:00 08/06/17 09:00 Klonopin - PO 0.5 mg DAILY [facility]ARRIS Administration Clonazepam 1.25 mg 08/05/17 22:00 08/05/17 21:07 Klonopin - PO 1.25 mg HS HARRIS Administration Clonazepam 0.5 mg 08/06/17 13:37 Klonopin - PO BID PRN ANXIETY Enoxaparin Sodium 40 mg 08/05/17 10:00 08/06/17 08:59 Lovenox - SQ 40 mg DAILY [facility]ARRIS Administration Fluvoxamine Maleate 400 mg 08/05/17 19:00 08/05/17 18:29 Luvox - PO 400 mg DAILY@1900 [facility]ARRIS Administration Guaifenesin 10 ml 08/05/17 15:12 08/05/17 21:07 Robitussin - PO 10 ml Q4H PRN Administration COUGH Hydralazine HCl 10 mg 08/05/17 22:00 08/06/17 09:00 Apresoline - PO 10 mg BID HARRIS Administration CEFTRIAXONE IN IS-OSM DEXTROSE 2 gm in 50 mls @ 100 mls/hr 08/06/17 10:00 09:45 Ceftriaxone 2 Gm-D5w Bag IVPB 100 mls/hr DAILY [facility]ARRIS Administration Ipratropium [place] 1 amp 08/05/17 15:12 08/06/17 02:05 Atrovent 0.02% Nebulizer - NEB 1 amp Q6H PRN Administration WHEEZING Ipratropium [place] 1 amp 08/06/17 12:00 08/06/17 16:03 Atrovent 0.02% Nebulizer - NEB 1 amp Q4H HARRIS Administration Methylprednisolone Sodium Succinate 40 mg 08/06/17 12:20 08/06/17 17:46 Solu-Medrol - IVPB 40 mg Q8H-IV HARRIS Administration Polyethylene Glycol 17 gm 08/05/17 10:00 08/06/17 09:06 Miralax (For Daily Use) - PO 17 mg BID HARRIS Administration Spironolactone 25 mg 08/05/17 10:00 08/06/17 08:59 Aldactone - PO 25 mg BID HARRIS Administration Thiamine HCl 100 mg 08/05/17 10:00 08/06/17 08:59 Vitamin B1 - PO 100 mg DAILY HARRIS Administration Trazodone HCl 50 mg 08/05/17 22:00 08/05/17 21:08 Desyrel - PO 50 mg HS HARRIS Administration Venlafaxine HCl 75 mg 08/05/17 08:00 08/06/17 09:00 Effexor Xr - PO 75 mg DAILY@0800 HARRIS Administration ASSESSMENT/PLAN: The patient is a32 yo female with PMH of eating disorder, gastroparesis and HTN presenting with SOB and non productive cough was found to be hypoxic requiring oxygen supplementation. Acute hypoxic respiratory failure possibly due reactive airway disease but may be related to pulmonary HTN, cardiomyopathy - started on Solumedrol 80 mg Q8h with response -Pulmonary consulted, will f/u recommendations -f/u echo with PFO study to r/o pulm HTN -cont Ceftriaxone day 2. -continue nebulizers HTN urgency hx of essential HTN with extensive workup to eliminate 2ndary causes. improved -cont Hydralazine Eating disorder: -counseling -low Na diet -Mail Truck Driver consult Depression and Anxiety: -cont Luvox -cont Effexor -cont klonopin Gastroparesis on azithromycin, will verify with PCP tomorrow DVT ppx -lovenox F/E/N: no/no changes/low Na Disposition: telemetry monitoring Problem List - Problems (1) H/O spinal fusion Code(s): Z98.1 - ARTHRODESIS STATUS (2) Hypertension Code(s): I10 - ESSENTIAL (PRIMARY) HYPERTENSION (3) Hypoxia Code(s): R09.02 - HYPOXEMIA (4) SOB (shortness of breath) Code(s): R06.02 - SHORTNESS OF BREATH Visit type - Emergency Visit Emergency Visit: Yes ED Registration Date: 08/05/17 Care time: The patient presented to the Emergency Department on the above date and was hospitalized for further evaluation of their emergent condition. - New Patient This patient is new to me today: Yes Date on this admission: 08/06/17 - Critical Care Critical Care patient: No - Discharge Referral Referred to [facility] No
[2017-08-06] MEDS: guaiFENesin 200 MG/10 ML 10 ML UNIT-DOSE CUPS PO PRN (21:46)
[2017-08-06] MEDS: traZODone HCL 50 MG TABLET (FP) PO SCH (21:47)
--- NOTE | 2017-08-06 21:47 | EKG ---
Test Reason : Blood Pressure : / mmHG Vent. Rate : 088 BPM Atrial Rate : 088 BPM P-R Int : 124 ms QRS Dur : 074 ms QT Int : 310 ms P-R-T Axes : 078 084 024 degrees QTc Int : 375 ms POOR DATA QUALITY, INTERPRETATION MAY BE ADVERSELY AFFECTED NORMAL SINUS RHYTHM NORMAL ECG WHEN COMPARED WITH ECG OF 27-JUL-2017 09:18, NO SIGNIFICANT CHANGE WAS FOUND Confirmed by DAMIAN VILLARREAL MD ([id number]) on 08/06/2017 9:46:42 PM Referred By: Confirmed By:DAMIAN VILLARREAL MD
[2017-08-07] MEDS: IPRATROPIUM BR 0.02% 0.5 MG/2.5 ML VIAL.NEB. NEB SCH ×6 (00:30→20:40)
[2017-08-07] MEDS: methylPREDNISolone NA SUCC 40 MG/1 ML VIAL IVPB SCH ×3 (01:26→17:33)
--- NOTE | 2017-08-07 06:10 | PN ---
Physical Exam: SUBJECTIVE: Patient seen and examined - A&Ox3; satting well on 3L NC yesterday; episode of SOB, anxiety yesterday, improved after albuterol tx; second episode of SOB with O2 sats in 86% with HR in 130s, improved after returning to bed; OOB to toilet - Still with dry cough, chest tightness/sob at times, worse when ambulating; No f/c/n/v/d; Still with mild anxiety; wants to return to program for eating disorder OBJECTIVE: Vital Signs Intake & Output 08/04/17 08/05/17 08/06/17 08/07/17 23:59 23:59 23:59 23:59 Intake Total 220 282 Balance 220 282 Weight 52.163 kg 53.977 kg Period Temp Pulse Resp BP Sys/Coulter Pulse Ox Last 24 Hr 97.9 F-98.4 F 65-129 18-20 128-156/66-131 100-100 GENERAL: A&Ox3, young woman, anxious HEAD: Normal with no signs of trauma. EYES: PERRL, extraocular movements intact, sclera anicteric, conjunctiva clear. No ptosis. ENT: Ears normal, nares patent, oropharynx clear without exudates, moist mucous membranes. NECK: Stridor, trachea midline, supple LUNGS: Diffuse BL I/E wheezing, vesicular breath sounds at bases HEART: Regular rate and rhythm, S1, S2 without murmur, rub or gallop. ABDOMEN: Soft, nontender, nondistended, normoactive bowel sounds, no guarding, no rebound, no hepatosplenomegaly, no masses. EXTREMITIES: 2+ pulses, warm, well-perfused, no edema. NEUROLOGICAL: Cranial nerves II through XII grossly intact. Normal speech, gait not observed. Laboratory Results - last 24 hr CBC, BMP 08/07/17 06:05 08/07/17 06:05 08/06/17 06:00 08/06/17 06:00 08/06/17 08/06/17 06:00 06:00 WBC 16.2 H D RBC 4.63 Hgb 15.3 Hct 45.1 MCV 97.4 H MCH 33.0 MCHC 33.9 RDW 11.7 Plt Count 247 MPV 7.9 Neutrophils % 93.2 H Lymphocytes % 5.3 L D Monocytes % 1.4 L D Eosinophils % 0.0 Basophils % 0.1 Sodium 138 Potassium 4.1 Chloride 103 Carbon Dioxide 25 Anion Gap 10 BUN 19 H Creatinine 0.7 Creat Clearance w eGFR > 60 Random Glucose 142 H Calcium 8.8 Magnesium 2.8 H Total Bilirubin 0.3 D AST 11 L ALT 22 Alkaline Phosphatase 52 Total Protein 7.4 Albumin 3.8 Active Medications Generic Name Dose Route Start Last Admin Trade Name Freq PRN Reason Stop Dose Admin Albuterol Sulfate 1 amp 08/06/17 13:38 08/06/17 13:03 Ventolin 0.042trength) - NEB 1 amp Q4H PRN Administration SHORT OF BREATH/WHEEZING Azithromycin 250 mg 08/05/17 10:00 08/06/17 08:59 Zithromax - PO 250 mg DAILY HARRIS Administration Clonazepam 0.5 mg 08/05/17 10:00 08/06/17 09:00 Klonopin - PO 0.5 mg DAILY [facility]ARRIS Administration Clonazepam 1.25 mg 08/05/17 22:00 08/06/17 21:46 Klonopin - PO 1.25 mg HS HARRIS Administration Clonazepam 0.5 mg 08/06/17 13:37 Klonopin - PO BID PRN ANXIETY Enoxaparin Sodium 40 mg 08/05/17 10:00 08/06/17 08:59 Lovenox - SQ 40 mg DAILY HARRIS Administration Fluvoxamine Maleate 400 mg 08/05/17 19:00 08/06/17 18:49 Luvox - PO 400 mg DAILY@1900 HARRIS Administration Guaifenesin 10 ml 08/05/17 15:12 08/06/17 21:46 Robitussin - PO 10 ml Q4H PRN Administration COUGH Hydralazine HCl 10 mg 08/05/17 22:00 08/06/17 21:47 Apresoline - PO 10 mg BID HARRIS Administration CEFTRIAXONE IN IS-OSM DEXTROSE 2 gm in 50 mls @ 100 mls/hr 08/06/17 10:00 09:45 Ceftriaxone 2 Gm-D5w Bag IVPB 100 mls/hr DAILY [facility]IS Administration Ipratropium [place] 1 amp 08/05/17 15:12 08/06/17 02:05 Atrovent 0.02% Nebulizer - NEB 1 amp Q6H PRN Administration WHEEZING Ipratropium [place] 1 amp 08/06/17 12:00 08/07/17 04:50 Atrovent 0.02% Nebulizer - NEB 1 amp Q4H [facility]ARRIS Administration Methylprednisolone Sodium Succinate 40 mg 08/06/17 12:20 08/07/17 01:26 Solu-Medrol - IVPB 40 mg Q8H-IV [facility]IS Administration Polyethylene Glycol 17 gm 08/05/17 10:00 08/06/17 21:47 Miralax (For Daily Use) - PO 17 mg BID [facility]IS Administration Spironolactone 25 mg 08/05/17 10:00 08/06/17 21:47 Aldactone - PO 25 mg BID HARRIS Administration Thiamine HCl 100 mg 08/05/17 10:00 08/06/17 08:59 Vitamin B1 - PO 100 mg DAILY [facility]IS Administration Trazodone HCl 50 mg 08/05/17 22:00 08/06/17 21:47 Desyrel - PO 50 mg HS HARRIS Administration Venlafaxine HCl 75 mg 08/05/17 08:00 08/06/17 09:00 Effexor Xr - PO 75 mg DAILY@0800 [facility]ARRIS Administration Microbiology 08/05/17 06:08 Nasopharyngeal Swab Influenza Types A,B Antigen (LUCI) - Final 08/05/17 06:08 Nasopharyngeal Swab - Final CXR 08/04 - no pathology. prior spinal fusion CTA 08/05- No pulmonary emboli ECHO 08/07 - Normal LV/RV function, no PFO, no valvulopathy. EF 55-60% ASSESSMENT/PLAN: 32 yo female with PMH of eating disorder, gastroparesis and HTN presenting with SOB and non productive cough was found to be hypoxic requiring oxygen supplementation. #Acute hypoxic respiratory failure - Satting 95-96% on 1L NC, however pt subjectively complaining of SOB; Prior hx of munchausen syndrome per medical attending at rehab clinic; flu swab negative - ENT consulted; upper airway scope notable for arytenoid erythema/edema; otherwise normal - Medrol 40mg TID - Pulmonary consulted, rec appreciated - Echo results as noted above - d/c rocephin - continue nebs - O2 support; titrate to maintain sat >96% - Possible anxiety component -repeat pre and post to determine o2 requirements - outpt PFTs - Consider EGD - robitussin - atrovent #HTN urgency - improved - Per PMD, pt with severe "white coat HTN" -cont Hydralazine, aldactone #Eating disorder - Pt anxious to return to program; spoke to coordinators at facility; pt may return with O2, however not optimal scenario -low Na diet -Utility Bagger consult - monitor for lyte abnormalities - thiamine daily #Depression and Anxiety: - c/w trazodone -cont Luvox -cont Effexor -cont klonopin; PRN for agitation #Gastroparesis -on azithromycin; confirmed - miralax for constipation #DVT ppx -lovenox #F/E/N: PO hydration daily lytes low sodium diet Disposition: Tele Plan discussed with Dr. Monica Tran, PGY1 Visit type - Emergency Visit Emergency Visit: Yes ED Registration Date: 08/05/17 Care time: The patient presented to the Emergency Department on the above date and was hospitalized for further evaluation of their emergent condition. - New Patient This patient is new to me today: Yes Date on this admission: 08/07/17 - Critical Care Critical Care patient: No
[2017-08-07 07:11] LABS: BASO % 0.1 % (0-2.0); HEMATOCRIT 43.4 % (32.4-45.2); HEMOGLOBIN 14.7 GM/dL (10.7-15.3); LYMPH % 4.3 % (8-40); MCH 32.9 pg (25.7-33.7); MCHC 33.9 g/dl (32.0-36.0); MEAN CELL VOLUME 97.2 fl (80-96); MEAN PLT VOLUME 7.7 fl (7.5-11.1); MONO % 2.8 % (3.8-10.2); NEUT % 92.8 % (42.8-82.8); PLATELET COUNT 231 K/MM3 (134-434); RBC 4.47 M/mm3 (3.60-5.2); RDW 11.4 % (11.6-15.6); WHITE BLOOD COUNT 18.2 K/mm3 (4.0-10.0)
[2017-08-07 07:31] LABS: ALBUMIN 3.6 g/dl (3.4-5.0); ANION GAP 6 (8-16); BILIRUBIN,TOTAL 0.3 mg/dL (0.2-1.0); BLOOD UREA NITROGEN 18 mg/dL (7-18); CALCIUM 8.6 mg/dL (8.5-10.1); CHLORIDE 101 mmol/L (98-107); CO2 30 mmol/L (21-32); CREATININE 0.6 mg/dL (0.55-1.02); GLUCOSE,RANDOM 150 mg/dL (74-106); POTASSIUM 4.5 mmol/L (3.5-5.1); SGOT/AST 13 U/L (15-37); SGPT/ALT 24 U/L (12-78); SODIUM 137 mmol/L (136-145); TOT PROT 6.8 g/dl (6.4-8.2)
[2017-08-07 07:32] LABS: ALK PHOS 50 U/L (45-117)
[2017-08-07] MEDS ORDERED: PT OWN MED DRAWER 7, Y5N ONE ×3 (07:38→21:01)
[2017-08-07] MEDS: VENLAFAXINE HCL 75 MG E.R. CAPSULES (FP) PO SCH (09:00)
[2017-08-07] MEDS: THIAMINE HCL 100 MG TABLET (FP) PO SCH (09:00)
[2017-08-07] MEDS: hydrALAZINE HCL 10 MG TABLET PO SCH ×2 (09:00→21:08)
[2017-08-07] MEDS: AZITHROMYCIN 250 MG TABLET PO SCH (09:00)
[2017-08-07] MEDS: CEFTRIAXONE IN IS-OSM DEXTROSE 2 GM/50 ML BAG IVPB SCH (09:00)
[2017-08-07] MEDS: ENOXAPARIN NA (PORCINE) 40 MG/0.4 ML DISP.SYRIN SQ SCH (09:00)
[2017-08-07] MEDS: POLYETHYLENE GLYCOL 3350 119 GM BTL PO SCH ×2 (09:01→21:08)
[2017-08-07] MEDS: SPIRONOLACTONE 25 MG TABLET (FP) PO SCH ×2 (09:01→21:08)
[2017-08-07] MEDS: clonazePAM 0.5 MG TABLET PO SCH ×2 (09:01→21:08)
--- NOTE | 2017-08-07 12:27 | PN ---
Teaching Attending Note Name of Resident: Bernard Tran ATTENDING PHYSICIAN STATEMENT I saw and evaluated the patient. I reviewed the resident's note and discussed the case with the resident. I agree with the resident's findings and plan as documented. SUBJECTIVE:dyspnea at rest has improved but unable to ambulate far due to dyspnea. feels like some of it is triggered by her anxiety.continues to have non productive cough. denies CP, SOB, fever, chills, N/vC/D OBJECTIVE: Last Vital Signs Temp Pulse Resp BP Pulse Ox 97.8 F 78 20 159/125 100 08/07/17 10:00 08/07/17 10:00 08/07/17 10:00 08/07/17 10:00 08/07/17 09:00 General NAD CV S1 S2 RRR Lungs very tight, poor inspiratory effort. diffuse wheezing some mild stridor ASSESSMENT AND PLAN: 32 yo F with PMH eating disorder, gastroparesis and HTN presenting SOB and non productive cough was found to be hypoxic requiring 4L NC 1. Acute hypoxic respiratory failure-concern for laryngospasms or irritation from purging in the past although its been several months. ENT consulted for laryngoscopy to further evaluate. does have lower oxygen requriments today 98% on 2L, drops to 94% on 1 L but pt states she feels more dyspnic although appears comfortable. will cont to titrate steroids. on Ceftriaxone day 3. will stop after today as no infectious causes. echo pending to r/o Pulm HTN. pulmonary on board. cont nebs 2. HTN urgency-hx of essential HTN with extensive workup to eliminate 2ndary causes. improved on current therapy. will cont for now. 3. Eating disorder 4. depression- on luvox and effexor 5. anxiety- klonopin HS 6. gastroparesis- on azithromycin? will need to verify if this accurate 7. DVT ppx- lovenox
--- NOTE | 2017-08-07 12:31 | PN ---
Progress Note, Physician History of Present Illness: pulmonary alert,feeling better,less dyspneic,+cough - Current Medication List Current Medications: Active Medications Albuterol Sulfate (Ventolin 0.042trength) -) 1 amp NEB Q4H PRN PRN Reason: SHORT OF BREATH/WHEEZING Last Admin: 08/06/17 13:03 Dose: 1 amp Azithromycin (Zithromax -) 250 mg PO DAILY [facility] Last Admin: 08/07/17 09:00 Dose: 250 mg Clonazepam (Klonopin -) 0.5 mg PO DAILY [facility] Last Admin: 08/07/17 09:01 Dose: 0.5 mg Clonazepam (Klonopin -) 1.25 mg PO HS [facility] Last Admin: 08/06/17 21:46 Dose: 1.25 mg Clonazepam (Klonopin -) 0.5 mg PO BID PRN PRN Reason: ANXIETY Enoxaparin Sodium (Lovenox -) 40 mg SQ DAILY [facility] Last Admin: 08/07/17 09:00 Dose: 40 mg Fluvoxamine Maleate (Luvox -) 400 mg PO DAILY@1900 [facility] Last Admin: 08/06/17 18:49 Dose: 400 mg Guaifenesin (Robitussin -) 10 ml PO Q4H PRN PRN Reason: COUGH Last Admin: 08/06/17 21:46 Dose: 10 ml Hydralazine HCl (Apresoline -) 10 mg PO BID [facility] Last Admin: 08/07/17 09:00 Dose: 10 mg CEFTRIAXONE IN IS-OSM DEXTROSE (Ceftriaxone 2 Gm-D5w Bag) 2 gm in 50 mls @ 100 mls/hr IVPB DAILY [facility] Last Admin: 08/07/17 09:00 Dose: 100 mls/hr Ipratropium [place] (Atrovent 0.02% Nebulizer -) 1 amp NEB Q6H PRN PRN Reason: WHEEZING Last Admin: 08/06/17 02:05 Dose: 1 amp Ipratropium [place] (Atrovent 0.02% Nebulizer -) 1 amp NEB Q4H [facility] Last Admin: 08/07/17 10:59 Dose: 1 amp Methylprednisolone Sodium Succinate (Solu-Medrol -) 40 mg IVPB Q8H-IV [facility] Last Admin: 08/07/17 09:00 Dose: 40 mg Polyethylene Glycol (Miralax (For Daily Use) -) 17 gm PO BID [facility] Last Admin: 08/07/17 09:01 Dose: 17 gm Spironolactone (Aldactone -) 25 mg PO BID [facility] Last Admin: 08/07/17 09:01 Dose: 25 mg Thiamine HCl (Vitamin B1 -) 100 mg PO DAILY [facility] Last Admin: 08/07/17 09:00 Dose: 100 mg Trazodone HCl (Desyrel -) 50 mg PO HS [facility] Last Admin: 08/06/17 21:47 Dose: 50 mg Venlafaxine HCl (Effexor Xr -) 75 mg PO DAILY@0800 [facility] Last Admin: 08/07/17 09:00 Dose: 75 mg - Objective Vital Signs: Vital Signs Temperature 97.8 F 08/07/17 10:00 Pulse Rate 78 08/07/17 10:00 Respiratory Rate 20 08/07/17 10:00 Blood Pressure 159/125 08/07/17 10:00 O2 Sat by Pulse Oximetry (%) 100 08/07/17 09:00 Constitutional: Yes: Well Nourished, Calm Eyes: Yes: WNL HENT: Yes: WNL Neck: Yes: Other (+ STRIDOR) Cardiovascular: Yes: Regular Rate and Rhythm, S1, S2 Respiratory: Yes: Wheezes Gastrointestinal: Yes: Normal Bowel Sounds, Soft Extremities: Yes: WNL Edema: No Labs: CBC, BMP 08/07/17 06:05 08/07/17 06:05 Assessment/Plan Problem List - Problems (1) Stridor Code(s): R06.1 - STRIDOR (2) Hypoxia Code(s): R09.02 - HYPOXEMIA (3) H/O spinal fusion Code(s): Z98.1 - ARTHRODESIS STATUS (4) Hypertension Code(s): I10 - ESSENTIAL (PRIMARY) HYPERTENSION Assessment/Plan STRIDOR POSSIBLY DUE TO UPPER AIRWAY PATHOLOGY ?NONIFECTIOUS EPIGLOTTISIS VS LARYNGEAL IRRITATION FROM PURGING + H/O BRONCHITIS H/O ANOREXIA HTN ENT TO EVALUATE WITH LARYNGOSCOPY DECREASE STEROIDS NO OBJECTION TO ANTIBIOTICS HUMIDIFIED O2 MAY NEED GI EVAL WITH EGD PFTS /FLOW VOLUME LOOP DR STOKES
--- NOTE | 2017-08-07 13:08 | CON.ENT ---
Consult Consult Specialty:: ENT Reason for Consultation:: Dyspnea - History of Present Illness Chief Complaint: Shorteness of Breath History of Present Illness: 32 yo female with HTN, anxiety, eating disorder who has had a 3 week history of cough and worsening SOB. She had note responded to outpatient treatment and came to the ER. She is feeling better since on IV steroids. She had been seen by Pulmonary who requested an evaluation of her airway for stridor. She denies any vomitting for 4 months, denies prior ENT issues or frequent heartburn - History Source History Provided By: Patient, Medical Record Limitations to Obtaining History: No Limitations - Past Medical History DENIAL MANAGEMENT REPRESENTATIVE: No: Alzheimer's Cardio/Vascular: No: AFIB Pulmonary: Yes: Bronchitis. No: Asthma, COPD, O2 Dependent, Pneumonia Gastrointestinal: No: Ascites Hepatobiliary: No: Cirrhosis Renal/: No: Renal Failure ...: No Musculoskeletal: No: Osteoarthritis Rheumatology: No: Fibromyalgia Endocrine: No: [place]'s Disease, Diabetes Mellitus - Past Surgical History Additional Surgical History: extensive scoliosis repair 10 years ago - Alcohol/Substance Use Hx Alcohol Use: No History of Substance Use: reports: None - Smoking History Smoking history: Never smoked Have you smoked in the past 12 months: No Home Medications - Allergies Allergies/Adverse Reactions: Allergies Allergy/AdvReac Type Severity Reaction Status Date / Time lamotrigine [From Lamictal] Allergy Verified 08/04/17 21:22 - Home Medications Home Medications: Ambulatory Orders Azithromycin 250 mg PO DAILY 08/04/17 Clonazepam [Klonopin] 1.25 mg PO BID 08/04/17 Desvenlafaxine Succinate [Pristiq ER] 25 mg PO DAILY 08/04/17 Fluvoxamine Maleate [Luvox -] 400 mg PO DAILY 08/04/17 Lisinopril 5 mg PO PRN 08/04/17 Spironolactone 25 mg PO DAILY 08/04/17 Review of Systems - Review of Systems Constitutional: reports: Weakness HENT: reports: No Symptoms, Other (SOB, ?stridor) Neck: reports: No Symptoms Cardiovascular: reports: No Symptoms, Shortness of Breath Respiratory: reports: Cough, SOB Physical Exam-ENT Vital Signs: Vital Signs Temperature 97.8 F 08/07/17 10:00 Pulse Rate 78 08/07/17 10:00 Respiratory Rate 20 08/07/17 10:00 Blood Pressure 159/125 08/07/17 10:00 O2 Sat by Pulse Oximetry (%) 100 08/07/17 09:00 Constitutional: Yes: Mild Distress Head: Yes: WNL Face: Yes: WNL Eyes: Yes: WNL Nose: Yes: Pale, Septum Deviated Nasal Passage: Yes: Pale Oral/Pharynx: Yes: WNL Outer Ear: Yes: WNL Ear Canal: Yes: WNL Tympanic Membrane: Yes: WNL Neck: Yes: WNL, Supple Respiratory: Yes: On Nasal O2 Neurological: Yes: Cran Nerves II-XII Intact Problem List - Problems (1) SOB (shortness of breath) Assessment/Plan: Pt with chronic dry cough, dyspnea and recent stridor- no airway lesions or narrowing noted. Normal VC motion with patent airway. +findings of arytenoid erythema and edema consistent with laryngopharyngeal reflux. Would treat with PPI 2x/day if no contra-indications. Code(s): R06.02 - SHORTNESS OF BREATH Procedure Note Procedure: Fiberoptic Laryngoscopy After obtaining verbal consent, topical anesthetic/decongestant sprayed intranasally. Flexible endoscoped passed through the right nostril without difficulty. No nasal pathology noted. Patent nasopharynx and oropharynx/ hypopharynx. Patent airway with normal VC motion. No lesions. +mild/moderate arytenoid erythema/edema and post-cricoid erythema c/w reflux.
[2017-08-07] MEDS ORDERED: PANTOPRAZOLE 40 MG TABLET (FP) PO SCH (17:30)
[2017-08-07] MEDS: traZODone HCL 50 MG TABLET (FP) PO SCH (21:08)
[2017-08-08] MEDS: IPRATROPIUM BR 0.02% 0.5 MG/2.5 ML VIAL.NEB. NEB SCH ×5 (01:00→19:50)
[2017-08-08] MEDS: methylPREDNISolone NA SUCC 40 MG/1 ML VIAL IVPB SCH ×3 (02:24→17:00)
--- NOTE | 2017-08-08 05:38 | PN ---
Physical Exam: SUBJECTIVE: Patient seen and examined by me this AM - hypertensive, tachy overnight; afebrile; still very anxious overnight, concerned about returning to her eating disorder program; counseled at length in AM about plan in hospital and on discharge; Still with nonproductive cough, no hemoptysis, no vision changes, WONG; Endorsing poor air entry/chest tightness; No CP, ab pain, back pain, peripheral edema, N/V; wants to shower; reduced appetite OBJECTIVE: Vital Signs Intake & Output 08/05/17 08/06/17 08/07/17 08/08/17 23:59 23:59 23:59 23:59 Intake Total 220 282 320 Balance 220 282 320 Weight 53.977 kg Period Temp Pulse Resp BP Sys/Coulter Pulse Ox Last 24 Hr 97.8 F-99.2 F 68-150 18-20 147-168/100-129 94-100 GENERAL: A&Ox3, young woman, lying in bed in NAD HEAD: Normal with no signs of trauma. EYES: PERRL, extraocular movements intact, sclera anicteric, conjunctiva clear. No ptosis. ENT: Ears normal, nares patent, oropharynx clear without exudates, moist mucous membranes. NECK: I/E stridor, supple, no JVD LUNGS: Diffuse BL I/E wheezing in upper airways. No crackles or rhonchi HEART: Regular rate and rhythm, S1, S2 without murmur, rub or gallop. ABDOMEN: Soft, nontender, nondistended, normoactive bowel sounds, no guarding, no rebound, no hepatosplenomegaly, no masses. EXTREMITIES: 2+ pulses, warm, well-perfused, no edema. NEUROLOGICAL: Cranial nerves II through XII grossly intact. Normal speech, gait not observed. Laboratory Results - last 24 hr CBC, BMP CBC, BMP 08/08/17 05:35 08/08/17 05:35 08/07/17 06:05 08/07/17 06:05 08/05/17 08/07/17 08/07/17 06:18 06:05 06:05 WBC 18.2 H RBC 4.47 Hgb 14.7 Hct 43.4 MCV 97.2 H MCH 32.9 MCHC 33.9 RDW 11.4 L Plt Count 231 MPV 7.7 Neutrophils % 92.8 H Lymphocytes % 4.3 L Monocytes % 2.8 L D Eosinophils % 0.0 Basophils % 0.1 Sodium 137 Potassium 4.5 Chloride 101 Carbon Dioxide 30 Anion Gap 6 L BUN 18 Creatinine 0.6 Creat Clearance w eGFR > 60 POC Glucometer [phone] Random Glucose 150 H Calcium 8.6 Total Bilirubin 0.3 AST 13 L ALT 24 Alkaline Phosphatase 50 Total Protein 6.8 Albumin 3.6 Active Medications Generic Name Dose Route Start Last Admin Trade Name Freq PRN Reason Stop Dose Admin Albuterol Sulfate 1 amp 08/06/17 13:38 08/06/17 13:03 Ventolin 0.042trength) - NEB 1 amp Q4H PRN Administration SHORT OF BREATH/WHEEZING Clonazepam 0.5 mg 08/05/17 10:00 08/07/17 09:01 Klonopin - PO 0.5 mg DAILY [facility] Administration Clonazepam 1.25 mg 08/05/17 22:00 08/07/17 21:08 Klonopin - PO 1.25 mg HS [facility] Administration Clonazepam 0.5 mg 08/06/17 13:37 Klonopin - PO BID PRN ANXIETY Enoxaparin Sodium 40 mg 08/05/17 10:00 08/07/17 09:00 Lovenox - SQ 40 mg DAILY [facility] Administration Fluvoxamine Maleate 400 mg 08/05/17 19:00 08/07/17 18:07 Luvox - PO 400 mg DAILY@1900 [facility] Administration Guaifenesin 10 ml 08/05/17 15:12 08/06/17 21:46 Robitussin - PO 10 ml Q4H PRN Administration COUGH Hydralazine HCl 10 mg 08/05/17 22:00 08/07/17 21:08 Apresoline - PO 10 mg BID [facility] Administration Ipratropium [place] 1 amp 08/05/17 15:12 08/06/17 02:05 Atrovent 0.02% Nebulizer - NEB 1 amp Q6H PRN Administration WHEEZING Ipratropium [place] 1 amp 08/06/17 12:00 08/08/17 05:19 Atrovent 0.02% Nebulizer - NEB 1 amp Q4H [facility] Administration Methylprednisolone Sodium Succinate 40 mg 08/06/17 12:20 08/08/17 02:24 Solu-Medrol - IVPB 40 mg Q8H-IV [facility] Administration Pantoprazole Sodium 40 mg 08/07/17 17:30 08/07/17 17:33 Protonix - PO 40 mg DAILY [facility] Administration Polyethylene Glycol 17 gm 08/05/17 10:00 08/07/17 21:08 Miralax (For Daily Use) - PO 17 gm BID [facility] Administration Spironolactone 25 mg 08/05/17 10:00 08/07/17 21:08 Aldactone - PO 25 mg BID [facility] Administration Thiamine HCl 100 mg 08/05/17 10:00 08/07/17 09:00 Vitamin B1 - PO 100 mg DAILY [facility] Administration Trazodone HCl 50 mg 08/05/17 22:00 08/07/17 21:08 Desyrel - PO 50 mg HS [facility] Administration Venlafaxine HCl 75 mg 08/05/17 08:00 08/07/17 09:00 Effexor Xr - PO 75 mg DAILY@0800 [facility] Administration Microbiology 08/05/17 06:08 Nasopharyngeal Swab Influenza Types A,B Antigen (LUCI) - Final 08/05/17 06:08 Nasopharyngeal Swab - Final CXR 08/04 - no pathology. prior spinal fusion CTA 08/05- No pulmonary emboli ECHO 08/07 - Normal LV/RV function, no PFO, no valvulopathy. EF 55-60% ASSESSMENT/PLAN: 32 yo female with PMH of eating disorder, gastroparesis and HTN presenting with SOB and non productive cough was found to be hypoxic requiring oxygen supplementation. Medical evaluation for hypoxia unremarkable at this point, likely bronchitis and/or LPR given arytenoid erythema on scope. After long conversation with CATEGORY PLANNER at eating disorder program, pt with long hx of factitious dz. Believes there is large psychiatric component to respiratory symptoms. Will continue to treat/evaluate per pulm recs. Optimal plan is discharge without O2, but will continue to reassess. Consider possible psych consult. #Acute hypoxic respiratory failure - Satting 95-96% on 1L NC, however pt subjectively complaining of SOB; Prior hx of munchausen syndrome per medical attending at rehab clinic; flu swab negative ; still desatting in bed to low 80s high 70s; possible psychiatric component; spoke with CATEGORY PLANNER at eating disorder program, - upper airway scope notable for arytenoid erythema/edema; otherwise normal - switch from medrol to PO prednisone - Pulmonary consulted, rec appreciated - continue nebs - O2 support; titrate to maintain sat >96% - BZs for anxiety - Pre and post with desat to 85% with ambulation; possible d/c on home O2, however will continue to evaluate during admission - outpt PFTs - Consider EGD; pt request outpt f/u - robitussin - atrovent - continue to evaluate for psychiatric component; consider psych consult #HTN urgency - improved - Per PMD, pt with severe "white coat HTN" - cont Hydralazine, aldactone #Eating disorder - Pt remains anxious to return to program; spoke to CATEGORY PLANNER at program, Karen Thomas, appraised of pt's hx - low Na diet - monitor for lyte abnormalities - thiamine daily #Depression and Anxiety: - c/w trazodone - cont Luvox - cont Effexor -cont klonopin; PRN for agitation #Gastroparesis - GI consulted, however pt wishes for outpt w/u - on azithromycin; confirmed - miralax for constipation #DVT ppx -lovenox #F/E/N: PO hydration daily lytes low sodium diet Disposition: possible d/c tomorrow with PO prednisone taper and outpt f/u Plan discussed with Dr. Sandro Tran, PGY1 Visit type - Emergency Visit Emergency Visit: Yes ED Registration Date: 08/05/17 Care time: The patient presented to the Emergency Department on the above date and was hospitalized for further evaluation of their emergent condition. - New Patient This patient is new to me today: No - Critical Care Critical Care patient: No
[2017-08-08 06:37] LABS: BASO % 0.1 % (0-2.0); HEMATOCRIT 45.3 % (32.4-45.2); HEMOGLOBIN 15.7 GM/dL (10.7-15.3); LYMPH % 5.3 % (8-40); MCH 33.6 pg (25.7-33.7); MCHC 34.6 g/dl (32.0-36.0); MEAN CELL VOLUME 97.1 fl (80-96); MEAN PLT VOLUME 8.1 fl (7.5-11.1); MONO % 3.5 % (3.8-10.2); NEUT % 91.1 % (42.8-82.8); PLATELET COUNT 238 K/MM3 (134-434); RBC 4.67 M/mm3 (3.60-5.2); RDW 11.6 % (11.6-15.6); WHITE BLOOD COUNT 16.6 K/mm3 (4.0-10.0)
[2017-08-08 07:10] LABS: ALBUMIN 3.8 g/dl (3.4-5.0); ANION GAP 11 (8-16); BILIRUBIN,TOTAL 0.7 mg/dL (0.2-1.0); BLOOD UREA NITROGEN 23 mg/dL (7-18); CALCIUM 8.8 mg/dL (8.5-10.1); CHLORIDE 97 mmol/L (98-107); CO2 29 mmol/L (21-32); CREATININE 0.7 mg/dL (0.55-1.02); GLUCOSE,RANDOM 141 mg/dL (74-106); POTASSIUM 4.5 mmol/L (3.5-5.1); SGOT/AST 30 U/L (15-37); SGPT/ALT 70 U/L (12-78); SODIUM 137 mmol/L (136-145)
[2017-08-08 07:11] LABS: ALK PHOS 46 U/L (45-117)
--- NOTE | 2017-08-08 08:05 | PN ---
Teaching Attending Note Name of Resident: Bernard Tran ATTENDING PHYSICIAN STATEMENT I saw and evaluated the patient. I reviewed the resident's note and discussed the case with the resident. I agree with the resident's findings and plan as documented with exceptions mentioned below. SUBJECTIVE: Patient seen and examined. overall feels better, no nausea, vomiting, abdominal pain or dyspnea currently. Tolerating diet well. OBJECTIVE: Vital Signs Period Temp Pulse Resp BP Sys/Coulter Pulse Ox Last 24 Hr 97.7 F-99.2 F 68-150 18-20 147-168/100-129 94-100 Intake & Output 08/05/17 08/06/17 08/07/17 08/08/17 23:59 23:59 23:59 23:59 Intake Total 220 282 320 Balance 220 282 320 Weight 119 lb General sitting in bed in no acute distress CVS S1S2 regular Chest CTAB, no rales or wheezing, no stridor currently Abdomen soft, NT, ND, positive bowel sounds Extremities no edema Home Medication List Medication Instructions Recorded Confirmed Type Azithromycin 250 mg PO DAILY 08/04/17 08/04/17 History Clonazepam [Klonopin] 1.25 mg PO BID 08/04/17 08/04/17 History Desvenlafaxine Succinate [Pristiq 25 mg PO DAILY 08/04/17 08/04/17 History ER] Fluvoxamine Maleate [Luvox -] 400 mg PO DAILY 08/04/17 08/05/17 History Lisinopril 5 mg PO PRN 08/04/17 08/04/17 History Spironolactone 25 mg PO DAILY 08/04/17 08/04/17 History Active Medications Generic Name Dose Route Start Last Admin Trade Name Freq PRN Reason Stop Dose Admin Albuterol Sulfate 1 amp 08/06/17 13:38 08/06/17 13:03 Ventolin 0.042trength) - NEB 1 amp Q4H PRN Administration SHORT OF BREATH/WHEEZING Clonazepam 0.5 mg 08/05/17 10:00 08/07/17 09:01 Klonopin - PO 0.5 mg DAILY [facility] Administration Clonazepam 1.25 mg 08/05/17 22:00 08/07/17 21:08 Klonopin - PO 1.25 mg HS [facility] Administration Clonazepam 0.5 mg 08/06/17 13:37 Klonopin - PO BID PRN ANXIETY Enoxaparin Sodium 40 mg 08/05/17 10:00 08/07/17 09:00 Lovenox - SQ 40 mg DAILY [facility] Administration Fluvoxamine Maleate 400 mg 08/05/17 19:00 08/07/17 18:07 Luvox - PO 400 mg DAILY@1900 [facility] Administration Guaifenesin 10 ml 08/05/17 15:12 08/06/17 21:46 Robitussin - PO 10 ml Q4H PRN Administration COUGH Hydralazine HCl 10 mg 08/05/17 22:00 08/07/17 21:08 Apresoline - PO 10 mg BID [facility] Administration Ipratropium [place] 1 amp 08/05/17 15:12 08/06/17 02:05 Atrovent 0.02% Nebulizer - NEB 1 amp Q6H PRN Administration WHEEZING Ipratropium [place] 1 amp 08/06/17 12:00 08/08/17 05:19 Atrovent 0.02% Nebulizer - NEB 1 amp Q4H [facility] Administration Methylprednisolone Sodium Succinate 40 mg 08/06/17 12:20 08/08/17 02:24 Solu-Medrol - IVPB 40 mg Q8H-IV [facility] Administration Pantoprazole Sodium 40 mg 08/08/17 10:00 Protonix - PO BID [facility] Polyethylene Glycol 17 gm 08/05/17 10:00 08/07/17 21:08 Miralax (For Daily Use) - PO 17 gm BID [facility] Administration Spironolactone 25 mg 08/05/17 10:00 08/07/17 21:08 Aldactone - PO 25 mg BID [facility] Administration Thiamine HCl 100 mg 08/05/17 10:00 08/07/17 09:00 Vitamin B1 - PO 100 mg DAILY [facility] Administration Trazodone HCl 50 mg 08/05/17 22:00 08/07/17 21:08 Desyrel - PO 50 mg HS [facility] Administration Venlafaxine HCl 75 mg 08/05/17 08:00 08/07/17 09:00 Effexor Xr - PO 75 mg DAILY@0800 [facility] Administration Laboratory Results - last 24 hr 08/05/17 08/08/17 08/08/17 06:18 05:35 05:35 WBC 16.6 H RBC 4.67 Hgb 15.7 H Hct 45.3 H MCV 97.1 H MCH 33.6 MCHC 34.6 RDW 11.6 Plt Count 238 MPV 8.1 Neutrophils % 91.1 H Lymphocytes % 5.3 L D Monocytes % 3.5 L Eosinophils % 0.0 Basophils % 0.1 Sodium 137 Potassium 4.5 Chloride 97 L Carbon Dioxide 29 Anion Gap 11 BUN 23 H Creatinine 0.7 Creat Clearance w eGFR > 60 POC Glucometer 161.28531 Random Glucose 141 H Calcium 8.8 Total Bilirubin 0.7 D AST 30 ALT 70 Alkaline Phosphatase 46 Total Protein 7.0 Albumin 3.8 Microbiology 08/05/17 06:08 Nasopharyngeal Swab Influenza Types A,B Antigen (LUCI) - Final 08/05/17 06:08 Nasopharyngeal Swab - Final CTA results reviewed Flexible laryngoscopy results reviewed ASSESSMENT AND PLAN: 32 yo F with PMH eating disorder, Manchausen's syndrome, gastroparesis and HTN admitted with hypoxia/shortness of breath suspected from laryngeal spasms/ irritation from purging. -Acute hypoxic respiratory failure, concern for laryngospasms or irritation from purging -Arytenoid erythema/edema, suspected from GERD. 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 CTA neg. Suspect largyneal irritation/arytenoid edema from GERD from purging disorder combined with her severe anxiety and recent URI contributory to her current symptoms. Change protonix to BID. Will need eventual EGD/GI input once oxygenation/BP have improved. ?Azithromycin for gastroparesis, no prior EGD per discussion with patient and Karen Thomas INVOICE CHECKER at the facility. Offered inpatient GI input for possible EGD, patient declines currently, would want to pursue outpatient. Currently tolerating diet well with no GI concerns, will place on PPI BID and outpatient GI follow up. Continue steroids, taper as improved. Recurrent leucocytosis, suspect steroid induced. 2D echo results reviewed. Per discussion with PCP, 'white coat hypertension', seems likely etiology for her refractory HTN, continue clonazepam, aldactone, hydralazine. Continue trazodone/venlafaxine. DVTPPx with lovenox. Dispo oxygen needs with activity/ambulation (concerns raised for patient holding breath with oxygen checks) for now with eventual taper. Discussed with jesús Galeana for d/c on prednisone taper with outpatient follow up. Plan for d/c back to eating disorder program with oxygen later today as arranged if no new concerns Discussed with patient and all questions answered.
[2017-08-08] MEDS ORDERED: PT OWN MED DRAWER 7, Y5N ONE (08:49)
[2017-08-08] MEDS: clonazePAM 0.5 MG TABLET PO SCH ×2 (09:04→21:16)
[2017-08-08] MEDS: VENLAFAXINE HCL 75 MG E.R. CAPSULES (FP) PO SCH (09:04)
[2017-08-08] MEDS: hydrALAZINE HCL 10 MG TABLET PO SCH ×2 (09:04→21:15)
[2017-08-08] MEDS: SPIRONOLACTONE 25 MG TABLET (FP) PO SCH ×2 (09:04→21:15)
[2017-08-08] MEDS: PANTOPRAZOLE 40 MG TABLET (FP) PO SCH ×2 (09:04→21:15)
[2017-08-08] MEDS: POLYETHYLENE GLYCOL 3350 119 GM BTL PO SCH ×2 (09:04→21:16)
[2017-08-08] MEDS: THIAMINE HCL 100 MG TABLET (FP) PO SCH (09:04)
[2017-08-08] MEDS: ENOXAPARIN NA (PORCINE) 40 MG/0.4 ML DISP.SYRIN SQ SCH (09:05)
--- NOTE | 2017-08-08 12:22 | PN ---
Progress Note (short form) - Note Progress Note: Resting in NAD on NC O2. Reports that she desaturates quickly when off O2. Some dry cough and sore throat. Intake & Output 08/05/17 08/06/17 08/07/17 08/08/17 23:59 23:59 23:59 23:59 Intake Total 220 282 320 100 Balance 220 282 320 100 Weight 119 lb Last Vital Signs Temp Pulse Resp BP Pulse Ox 97.9 F 145 H 20 160/133 95 08/08/17 10:00 08/08/17 12:10 08/08/17 10:00 08/08/17 10:00 08/08/17 12:10 Active Medications Albuterol Sulfate (Ventolin 0.042trength) -) 1 amp NEB Q4H PRN PRN Reason: SHORT OF BREATH/WHEEZING Last Admin: 08/06/17 13:03 Dose: 1 amp Clonazepam (Klonopin -) 0.5 mg PO DAILY [facility] Last Admin: 08/08/17 09:04 Dose: 0.5 mg Clonazepam (Klonopin -) 1.25 mg PO HS [facility] Last Admin: 08/07/17 21:08 Dose: 1.25 mg Clonazepam (Klonopin -) 0.5 mg PO BID PRN PRN Reason: ANXIETY Enoxaparin Sodium (Lovenox -) 40 mg SQ DAILY [facility] Last Admin: 08/08/17 09:05 Dose: 40 mg Fluvoxamine Maleate (Luvox -) 400 mg PO DAILY@1900 [facility] Last Admin: 08/07/17 18:07 Dose: 400 mg Guaifenesin (Robitussin -) 10 ml PO Q4H PRN PRN Reason: COUGH Last Admin: 08/06/17 21:46 Dose: 10 ml Hydralazine HCl (Apresoline -) 10 mg PO BID [facility] Last Admin: 08/08/17 09:04 Dose: 10 mg Ipratropium [place] (Atrovent 0.02% Nebulizer -) 1 amp NEB Q6H PRN PRN Reason: WHEEZING Last Admin: 08/06/17 02:05 Dose: 1 amp Ipratropium [place] (Atrovent 0.02% Nebulizer -) 1 amp NEB Q4H [facility] Last Admin: 08/08/17 05:19 Dose: 1 amp Methylprednisolone Sodium Succinate (Solu-Medrol -) 40 mg IVPB Q8H-IV [facility] Last Admin: 08/08/17 09:04 Dose: 40 mg Pantoprazole Sodium (Protonix -) 40 mg PO BID [facility] Last Admin: 08/08/17 09:04 Dose: 40 mg Polyethylene Glycol (Miralax (For Daily Use) -) 17 gm PO BID [facility] Last Admin: 08/08/17 09:04 Dose: 17 gm Spironolactone (Aldactone -) 25 mg PO BID [facility] Last Admin: 08/08/17 09:04 Dose: 25 mg Thiamine HCl (Vitamin B1 -) 100 mg PO DAILY [facility] Last Admin: 08/08/17 09:04 Dose: 100 mg Trazodone HCl (Desyrel -) 50 mg PO HS [facility] Last Admin: 08/07/17 21:08 Dose: 50 mg Venlafaxine HCl (Effexor Xr -) 75 mg PO DAILY@0800 [facility] Last Admin: 08/08/17 09:04 Dose: 75 mg Constitutional: Yes: Thin, anxious, NAD Eyes: Yes: WNL HENT: Yes: WNL Neck: Yes: intermittent stridor Cardiovascular: Yes: Regular Rate and Rhythm, S1, S2 Respiratory: Yes: Transmitted upper airway sounds Gastrointestinal: Yes: Normal Bowel Sounds, Soft Extremities: Yes: WNL Edema: No Labs: Laboratory Results - last 24 hr 08/08/17 08/08/17 05:35 05:35 WBC 16.6 H RBC 4.67 Hgb 15.7 H Hct 45.3 H MCV 97.1 H MCH 33.6 MCHC 34.6 RDW 11.6 Plt Count 238 MPV 8.1 Neutrophils % 91.1 H Lymphocytes % 5.3 L D Monocytes % 3.5 L Eosinophils % 0.0 Basophils % 0.1 Sodium 137 Potassium 4.5 Chloride 97 L Carbon Dioxide 29 Anion Gap 11 BUN 23 H Creatinine 0.7 Creat Clearance w eGFR > 60 Random Glucose 141 H Calcium 8.8 Total Bilirubin 0.7 D AST 30 ALT 70 Alkaline Phosphatase 46 Total Protein 7.0 Albumin 3.8 Assessment/Plan Problem List - Problems (1) Stridor Code(s): R06.1 - STRIDOR (2) Hypoxia Code(s): R09.02 - HYPOXEMIA (3) H/O spinal fusion Code(s): Z98.1 - ARTHRODESIS STATUS (4) Hypertension Code(s): I10 - ESSENTIAL (PRIMARY) HYPERTENSION Assessment/Plan Possible LPR H/O BRONCHITIS H/O ANOREXIA HTN PREDNISONE HUMIDIFIED O2 GI EVALUATION HAS BEEN CALLED WILL NEED PFTS WITH FLOW VOLUME LOOP WILL NEED TO CHECK O2 SATURATION PRE AND POST AMBULATION ON RA DR SAHA
--- NOTE | 2017-08-08 12:54 | PN ---
Progress Note (short form) - Note Progress Note: I was informed by the wishes to follow-up as an outpatient and that the consult request will be canceled.
[2017-08-08] MEDS: traZODone HCL 50 MG TABLET (FP) PO SCH (21:15)
[2017-08-09] MEDS: IPRATROPIUM BR 0.02% 0.5 MG/2.5 ML VIAL.NEB. NEB SCH ×6 (00:20→20:43)
[2017-08-09] MEDS: methylPREDNISolone NA SUCC 40 MG/1 ML VIAL IVPB SCH ×3 (02:23→18:14)
--- NOTE | 2017-08-09 06:08 | PN ---
Physical Exam: SUBJECTIVE: Patient seen and examined by me - one episode of chest pain, dyspnea. Improved after duonebs. Afebrile, hemo stable. Plan for possible d/c today. - Denies f/c/n/v/d. States breathing better today. EVP GENERAL COUNSEL cough during episode of chest tightness/sob last night, otherwise no cough. Very insistent on leaving today. Satting 98-100% overnight when sleeping. OBJECTIVE: Vital Signs Intake & Output 08/06/17 08/07/17 08/08/17 08/09/17 23:59 23:59 23:59 23:59 Intake Total 282 320 200 Balance 282 320 200 Period Temp Pulse Resp BP Sys/Coulter Pulse Ox Last 24 Hr 97.4 F-99.3 F 64-145 20-20 132-161/76-133 95-98 GENERAL: A&Ox3, young woman, lying in bed in NAD HEAD: Normal with no signs of trauma. EYES: PERRL, extraocular movements intact, sclera anicteric, conjunctiva clear. No ptosis. ENT: Ears normal, nares patent, oropharynx clear without exudates, moist mucous membranes. NECK: I/E stridor improved, supple, no JVD LUNGS: Lungs CTABL, Upper airway stridor resonating to bases. No crackles or wheezing, rhonchi. HEART: Regular rate and rhythm, S1, S2 without murmur, rub or gallop. ABDOMEN: Soft, nontender, nondistended, normoactive bowel sounds, no guarding, no rebound, no hepatosplenomegaly, no masses. EXTREMITIES: 2+ pulses, warm, well-perfused, no edema. NEUROLOGICAL: Cranial nerves II through XII grossly intact. Normal speech, gait not observed. Laboratory Results - last 24 hr CBC, BMP 08/09/17 05:30 08/09/17 05:30 08/08/17 05:35 08/08/17 05:35 08/08/17 08/08/17 05:35 05:35 WBC 16.6 H RBC 4.67 Hgb 15.7 H Hct 45.3 H MCV 97.1 H MCH 33.6 MCHC 34.6 RDW 11.6 Plt Count 238 MPV 8.1 Neutrophils % 91.1 H Lymphocytes % 5.3 L D Monocytes % 3.5 L Eosinophils % 0.0 Basophils % 0.1 Sodium 137 Potassium 4.5 Chloride 97 L Carbon Dioxide 29 Anion Gap 11 BUN 23 H Creatinine 0.7 Creat Clearance w eGFR > 60 Random Glucose 141 H Calcium 8.8 Total Bilirubin 0.7 D AST 30 ALT 70 Alkaline Phosphatase 46 Total Protein 7.0 Albumin 3.8 Active Medications Generic Name Dose Route Start Last Admin Trade Name Freq PRN Reason Stop Dose Admin Albuterol Sulfate 1 amp 08/06/17 13:38 08/06/17 13:03 Ventolin 0.042trength) - NEB 1 amp Q4H PRN Administration SHORT OF BREATH/WHEEZING Clonazepam 0.5 mg 08/05/17 10:00 08/08/17 09:04 Klonopin - PO 0.5 mg DAILY [facility]IS Administration Clonazepam 1.25 mg 08/05/17 22:00 08/08/17 21:16 Klonopin - PO 1.25 mg HS [facility]IS Administration Clonazepam 0.5 mg 08/06/17 13:37 Klonopin - PO BID PRN ANXIETY Enoxaparin Sodium 40 mg 08/05/17 10:00 08/08/17 09:05 Lovenox - SQ 40 mg DAILY H[facility]IS Administration Fluvoxamine Maleate 400 mg 08/05/17 19:00 08/08/17 18:45 Luvox - PO 400 mg DAILY@1900 [facility] Administration Guaifenesin 10 ml 08/05/17 15:12 08/06/17 21:46 Robitussin - PO 10 ml Q4H PRN Administration COUGH Hydralazine HCl 10 mg 08/05/17 22:00 08/08/17 21:15 Apresoline - PO 10 mg BID HARRIS Administration Ipratropium [place] 1 amp 08/05/17 15:12 08/06/17 02:05 Atrovent 0.02% Nebulizer - NEB 1 amp Q6H PRN Administration WHEEZING Ipratropium [place] 1 amp 08/06/17 12:00 08/09/17 03:54 Atrovent 0.02% Nebulizer - NEB 1 amp Q4H [facility] Administration Methylprednisolone Sodium Succinate 40 mg 08/06/17 12:20 08/09/17 02:23 Solu-Medrol - IVPB 40 mg Q8H-IV [facility] Administration Pantoprazole Sodium 40 mg 08/08/17 10:00 08/08/17 21:15 Protonix - PO 40 mg BID H[facility]IS Administration Polyethylene Glycol 17 gm 08/05/17 10:00 08/08/17 21:16 Miralax (For Daily Use) - PO 17 gm BID [facility] Administration Spironolactone 25 mg 08/05/17 10:00 08/08/17 21:15 Aldactone - PO 25 mg BID H[facility]IS Administration Thiamine HCl 100 mg 08/05/17 10:00 08/08/17 09:04 Vitamin B1 - PO 100 mg DAILY [facility] Administration Trazodone HCl 50 mg 08/05/17 22:00 08/08/17 21:15 Desyrel - PO 50 mg HS [facility] Administration Venlafaxine HCl 75 mg 08/05/17 08:00 08/08/17 09:04 Effexor Xr - PO 75 mg DAILY@0800 [facility] Administration Microbiology 08/05/17 06:08 Nasopharyngeal Swab Influenza Types A,B Antigen (LUCI) - Final 08/05/17 06:08 Nasopharyngeal Swab - Final CXR 08/04 - no pathology. prior spinal fusion CTA 08/05- No pulmonary emboli ECHO 08/07 - Normal LV/RV function, no PFO, no valvulopathy. EF 55-60% ASSESSMENT/PLAN: 32 yo female with PMH of eating disorder, gastroparesis and HTN presenting with SOB and non productive cough was found to be hypoxic requiring oxygen supplementation. Medical evaluation for hypoxia unremarkable at this point, likely bronchitis and/or LPR given arytenoid erythema on scope. Pulmonary work- up unrevealing at this point. Will pursue heme/onc, cardiology work-up at this point. Optimal plan is discharge without O2, but will continue to reassess. Consider possible psych consult. #Acute hypoxic respiratory failure - Still with SOB; Prior hx of munchausen syndrome per medical attending at rehab clinic; flu swab negative ; pt desatting to low 80s with no exertion - upper airway scope notable for arytenoid erythema/edema; otherwise normal - c/w IV medrol until symptomatic improvement - Pulmonary consulted, rec appreciated - continue nebs - Humified O2; titrate to maintain sat >96% - BZs for anxiety - Multiple ABGs with hypoxia/hypercarbia today - outpt PFTs; started on IS - robitussin - atrovent - continue to evaluate for psychiatric component; consider psych consult - Cardiology, Heme/onc consulted - Consider other sources of hypoxia from lung parenchymal dz (intracardiac shunt vs. hematologic consider); Borderline polycythemia (Hgb 15.5) #GERD/LPR - PPI BID - EGD offered as inpatient; pt refused #HTN urgency - improved - Per PMD, pt with severe "white coat HTN" - cont Hydralazine, aldactone #Eating disorder - Pt remains anxious to return to program; spoke to EVP GENERAL COUNSEL at program, Karen Thomas, appraised of pt's hx - low Na diet - monitor for lyte abnormalities - thiamine daily #Depression and Anxiety; - c/w trazodone - cont Luvox - cont Effexor -cont klonopin; PRN for agitation #Gastroparesis - GI consulted, however pt wishes for outpt w/u - miralax for constipation #DVT ppx -lovenox #F/E/N: PO hydration daily lytes low sodium diet Disposition: Will require further w/u of hypoxia before discharge Plan discussed with Dr. Sandro Tran, PGY1 Visit type - Emergency Visit Emergency Visit: Yes ED Registration Date: 08/05/17 Care time: The patient presented to the Emergency Department on the above date and was hospitalized for further evaluation of their emergent condition. - New Patient This patient is new to me today: No - Critical Care Critical Care patient: No
[2017-08-09 07:05] LABS: HEMATOCRIT 45.1 % (32.4-45.2); HEMOGLOBIN 15.5 GM/dL (10.7-15.3); MCH 33.2 pg (25.7-33.7); MCHC 34.4 g/dl (32.0-36.0); MEAN CELL VOLUME 96.5 fl (80-96); PLATELET COUNT 236 K/MM3 (134-434); RBC 4.67 M/mm3 (3.60-5.2); RDW 11.4 % (11.6-15.6); WHITE BLOOD COUNT 12.2 K/mm3 (4.0-10.0)
[2017-08-09 07:06] LABS: ALBUMIN 3.5 g/dl (3.4-5.0); ANION GAP 4 (8-16); BLOOD UREA NITROGEN 23 mg/dL (7-18); CALCIUM 8.8 mg/dL (8.5-10.1); CHLORIDE 98 mmol/L (98-107); CO2 32 mmol/L (21-32); GLUCOSE,RANDOM 125 mg/dL (74-106); POTASSIUM 4.6 mmol/L (3.5-5.1); SGOT/AST 15 U/L (15-37); SGPT/ALT 53 U/L (12-78); SODIUM 134 mmol/L (136-145)
[2017-08-09 07:08] LABS: ALK PHOS 46 U/L (45-117); BILIRUBIN,TOTAL 0.5 mg/dL (0.2-1.0); CREATININE 0.7 mg/dL (0.55-1.02); TOT PROT 6.9 g/dl (6.4-8.2)
[2017-08-09 07:56] LABS: ARTERIAL BLD GAS O2 SATURATION 95.8 % (90-98.9); ARTERIAL BLOOD GAS BASE EXCESS 4.4 meq/l (-2-2); ARTERIAL BLOOD GAS PCO2 63.4 mmHg (35-45); ARTERIAL BLOOD GAS PO2 89.2 mmHg (80-100); ARTERIAL BLOOD GAS pH 7.33 (7.35-7.45)
[2017-08-09 07:57] LABS: ALLENS TEST POSITIVE
[2017-08-09] MEDS: THIAMINE HCL 100 MG TABLET (FP) PO SCH (09:28)
[2017-08-09] MEDS: POLYETHYLENE GLYCOL 3350 119 GM BTL PO SCH ×2 (09:28→21:01)
[2017-08-09] MEDS: clonazePAM 0.5 MG TABLET PO SCH ×2 (09:28→21:01)
[2017-08-09] MEDS: hydrALAZINE HCL 10 MG TABLET PO SCH ×2 (09:28→21:01)
[2017-08-09] MEDS: PANTOPRAZOLE 40 MG TABLET (FP) PO SCH ×2 (09:28→21:01)
[2017-08-09] MEDS: SPIRONOLACTONE 25 MG TABLET (FP) PO SCH ×2 (09:28→21:01)
[2017-08-09] MEDS: VENLAFAXINE HCL 75 MG E.R. CAPSULES (FP) PO SCH (09:29)
[2017-08-09] MEDS: ENOXAPARIN NA (PORCINE) 40 MG/0.4 ML DISP.SYRIN SQ SCH (11:28)
--- NOTE | 2017-08-09 13:06 | PN ---
Teaching Attending Note Name of Resident: Bernard Tran ATTENDING PHYSICIAN STATEMENT I saw and evaluated the patient. I reviewed the resident's note and discussed the case with the resident. I agree with the resident's findings and plan as documented with exceptions mentioned below. SUBJECTIVE: Patient seen and examined. Anxious but no new complaints. OBJECTIVE: Vital Signs Period Temp Pulse Resp BP Sys/Coulter Pulse Ox Last 24 Hr 97.4 F-99.3 F 68-118 20-20 125-161/76-133 96-98 Intake & Output 08/06/17 08/07/17 08/08/17 08/09/17 23:59 23:59 23:59 23:59 Intake Total 282 320 200 120 Balance 282 320 200 120 General: sitting in bed in no acute distress Chest: no rales or wheezing, no stridor appreciated currently Extremities: no edema Home Medication List Medication Instructions Recorded Confirmed Type Azithromycin 250 mg PO DAILY 08/04/17 08/04/17 History Clonazepam [Klonopin] 1.25 mg PO BID 08/04/17 08/04/17 History Desvenlafaxine Succinate [Pristiq 25 mg PO DAILY 08/04/17 08/04/17 History ER] Fluvoxamine Maleate [Luvox -] 400 mg PO DAILY 08/04/17 08/05/17 History Lisinopril 5 mg PO PRN 08/04/17 08/04/17 History Spironolactone 25 mg PO DAILY 08/04/17 08/04/17 History Active Medications Generic Name Dose Route Start Last Admin Trade Name Freq PRN Reason Stop Dose Admin Albuterol Sulfate 1 amp 08/06/17 13:38 08/06/17 13:03 Ventolin 0.042trength) - NEB 1 amp Q4H PRN Administration SHORT OF BREATH/WHEEZING Clonazepam 0.5 mg 08/05/17 10:00 08/09/17 09:28 Klonopin - PO 0.5 mg DAILY [facility] Administration Clonazepam 1.25 mg 08/05/17 22:00 08/08/17 21:16 Klonopin - PO 1.25 mg HS [facility] Administration Clonazepam 0.5 mg 08/06/17 13:37 Klonopin - PO BID PRN ANXIETY Enoxaparin Sodium 40 mg 08/05/17 10:00 08/09/17 11:28 Lovenox - SQ 40 mg DAILY [facility] Administration Fluvoxamine Maleate 400 mg 08/05/17 19:00 08/08/17 18:45 Luvox - PO 400 mg DAILY@1900 [facility] Administration Guaifenesin 10 ml 08/05/17 15:12 08/06/17 21:46 Robitussin - PO 10 ml Q4H PRN Administration COUGH Hydralazine HCl 10 mg 08/05/17 22:00 08/09/17 09:28 Apresoline - PO 10 mg BID [facility] Administration Ipratropium [place] 1 amp 08/05/17 15:12 08/06/17 02:05 Atrovent 0.02% Nebulizer - NEB 1 amp Q6H PRN Administration WHEEZING Ipratropium [place] 1 amp 08/06/17 12:00 08/09/17 12:14 Atrovent 0.02% Nebulizer - NEB 1 amp Q4H [facility] Administration Methylprednisolone Sodium Succinate 40 mg 08/06/17 12:20 08/09/17 09:30 Solu-Medrol - IVPB 40 mg Q8H-IV [facility] Administration Pantoprazole Sodium 40 mg 08/08/17 10:00 08/09/17 09:28 Protonix - PO 40 mg BID [facility] Administration Polyethylene Glycol 17 gm 08/05/17 10:00 08/09/17 09:28 Miralax (For Daily Use) - PO 17 gm BID [facility] Administration Spironolactone 25 mg 08/05/17 10:00 08/09/17 09:28 Aldactone - PO 25 mg BID [facility] Administration Thiamine HCl 100 mg 08/05/17 10:00 08/09/17 09:28 Vitamin B1 - PO 100 mg DAILY [facility] Administration Trazodone HCl 50 mg 08/05/17 22:00 08/08/17 21:15 Desyrel - PO 50 mg HS [facility] Administration Venlafaxine HCl 75 mg 08/05/17 08:00 08/09/17 09:29 Effexor Xr - PO 75 mg DAILY@0800 [facility] Administration Laboratory Results - last 24 hr 08/09/17 08/09/17 08/09/17 05:30 05:30 07:40 WBC 12.2 H RBC 4.67 Hgb 15.5 H Hct 45.1 MCV 96.5 H MCH 33.2 MCHC 34.4 RDW 11.4 L Plt Count 236 MPV 8.0 Puncture Site Right radial ABG pH 7.33 L ABG pCO2 at Pt Temp 63.4 H* D ABG pO2 at Pt Temp 89.2 D ABG HCO3 32.4 H ABG O2 Sat (Measured) 95.8 ABG O2 Content 21.8 ABG Base Excess 4.4 H Michael Test Positive O2 Delivery Device Nasal cannula Oxygen Flow Rate 2l Mechanical Rate No PEEP 0.0 Sodium 134 L Potassium 4.6 Chloride 98 Carbon Dioxide 32 Anion Gap 4 L BUN 23 H Creatinine 0.7 Creat Clearance w eGFR > 60 Random Glucose 125 H Calcium 8.8 Total Bilirubin 0.5 D AST 15 ALT 53 Alkaline Phosphatase 46 Total Protein 6.9 Albumin 3.5 ASSESSMENT AND PLAN: 32 yo F with PMH eating disorder, Manchausen's syndrome, gastroparesis and HTN admitted with hypoxia/shortness of breath suspected from laryngeal spasms/ irritation from purging. -Acute hypoxic respiratory failure, concern for laryngospasms or irritation from purging -Arytenoid erythema/edema, suspected from GERD. 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 CTA neg. Suspect largyneal irritation/arytenoid edema from GERD from purging disorder combined with her severe anxiety and recent URI contributory to her current symptoms. Protonix to BID. Will need eventual EGD/GI input once oxygenation/BP have improved. ?Azithromycin for gastroparesis, no prior EGD per discussion with patient and Karen Thomas RESIDENT ENGINEER at the facility. Offered inpatient GI input for possible EGD, patient declines currently, would want to pursue outpatient. Currently tolerating diet well with no GI concerns, will place on PPI BID and outpatient GI follow up. Continue steroids, taper as improved. Recurrent leucocytosis, suspect steroid induced. 2D echo results reviewed. Per discussion with PCP, 'white coat hypertension', seems likely etiology for her refractory HTN, continue clonazepam, aldactone, hydralazine. Continue trazodone/venlafaxine. Intermittent hypoxia noted, ABG noted. ?etiology, ?Psychogenic. CTA/2D echo non concerning. Flexible laryngoscopy with no acute concerns. Repeat oxygenation today and dispo planning as improved as patient to eager to return to her facility for her psychiatric treatment. DVTPPx with lovenox. Dispo planning in 24 hours pending oxygenation and clinical course. Discussed with patient and all questions answered.
[2017-08-09 13:51] LABS: ARTERIAL BLD GAS O2 SATURATION 83.4 % (90-98.9); ARTERIAL BLOOD GAS BASE EXCESS 5.2 meq/l (-2-2); ARTERIAL BLOOD GAS PCO2 58.7 mmHg (35-45); ARTERIAL BLOOD GAS PO2 53.2 mmHg (80-100); ARTERIAL BLOOD GAS pH 7.36 (7.35-7.45)
[2017-08-09 13:54] LABS: ALLENS TEST POSITIVE
--- NOTE | 2017-08-09 15:23 | PN ---
Progress Note, Physician History of Present Illness: PULMONARY ALERT,NO DISTRESS,LESS SOB,MIN COUGH.PT DESATURATES TO 83% ON RA AT REST - Current Medication List Current Medications: Active Medications Albuterol Sulfate (Ventolin 0.042trength) -) 1 amp NEB Q4H PRN PRN Reason: SHORT OF BREATH/WHEEZING Last Admin: 08/06/17 13:03 Dose: 1 amp Clonazepam (Klonopin -) 0.5 mg PO DAILY [facility] Last Admin: 08/09/17 09:28 Dose: 0.5 mg Clonazepam (Klonopin -) 1.25 mg PO HS [facility] Last Admin: 08/08/17 21:16 Dose: 1.25 mg Enoxaparin Sodium (Lovenox -) 40 mg SQ DAILY [facility] Last Admin: 08/09/17 11:28 Dose: 40 mg Fluvoxamine Maleate (Luvox -) 400 mg PO DAILY@1900 [facility] Last Admin: 08/08/17 18:45 Dose: 400 mg Guaifenesin (Robitussin -) 10 ml PO Q4H PRN PRN Reason: COUGH Last Admin: 08/06/17 21:46 Dose: 10 ml Hydralazine HCl (Apresoline -) 10 mg PO BID [facility] Last Admin: 08/09/17 09:28 Dose: 10 mg Ipratropium [place] (Atrovent 0.02% Nebulizer -) 1 amp NEB Q6H PRN PRN Reason: WHEEZING Last Admin: 08/06/17 02:05 Dose: 1 amp Ipratropium [place] (Atrovent 0.02% Nebulizer -) 1 amp NEB Q4H [facility] Last Admin: 08/09/17 12:14 Dose: 1 amp Methylprednisolone Sodium Succinate (Solu-Medrol -) 40 mg IVPB Q8H-IV [facility] Last Admin: 08/09/17 09:30 Dose: 40 mg Pantoprazole Sodium (Protonix -) 40 mg PO BID [facility] Last Admin: 08/09/17 09:28 Dose: 40 mg Polyethylene Glycol (Miralax (For Daily Use) -) 17 gm PO BID [facility] Last Admin: 08/09/17 09:28 Dose: 17 gm Spironolactone (Aldactone -) 25 mg PO BID [facility] Last Admin: 08/09/17 09:28 Dose: 25 mg Thiamine HCl (Vitamin B1 -) 100 mg PO DAILY [facility] Last Admin: 08/09/17 09:28 Dose: 100 mg Trazodone HCl (Desyrel -) 50 mg PO HS [facility] Last Admin: 08/08/17 21:15 Dose: 50 mg Venlafaxine HCl (Effexor Xr -) 75 mg PO DAILY@0800 [facility] Last Admin: 08/09/17 09:29 Dose: 75 mg - Objective Vital Signs: Vital Signs Temperature 98.0 F 08/09/17 14:05 Pulse Rate 82 08/09/17 14:05 Respiratory Rate 18 08/09/17 14:05 Blood Pressure 149/104 08/09/17 14:05 O2 Sat by Pulse Oximetry (%) 98 08/09/17 09:00 Constitutional: Yes: Calm, Pallor, Thin HENT: Yes: WNL Neck: Yes: Other (LESS STRIDOR) Cardiovascular: Yes: Regular Rate and Rhythm, S1, S2 Respiratory: Yes: Other (TRANSMITTED UPPER AIRWAY BS) Gastrointestinal: Yes: Normal Bowel Sounds, Soft Extremities: Yes: WNL Edema: No Labs: CBC, BMP 08/09/17 05:30 08/09/17 05:30 Assessment/Plan Problem List - Problems (1) Stridor Code(s): R06.1 - STRIDOR (2) Hypoxia Code(s): R09.02 - HYPOXEMIA (3) H/O spinal fusion Code(s): Z98.1 - ARTHRODESIS STATUS (4) Hypertension Code(s): I10 - ESSENTIAL (PRIMARY) HYPERTENSION Assessment/Plan STRIDOR IMPROVING POSSIBLY DUE TO UPPER AIRWAY PATHOLOGY ?LPR + H/O BRONCHITIS H/O ANOREXIA HTN HYPOXEMIA STEROIDS HUMIDIFIED O2 GI EVAL PFTS /FLOW VOLUME LOOP INCENTIVE SPIROMETER DR STOKES
[2017-08-09] MEDS: traZODone HCL 50 MG TABLET (FP) PO SCH (21:01)
[2017-08-10] MEDS: IPRATROPIUM BR 0.02% 0.5 MG/2.5 ML VIAL.NEB. NEB SCH ×4 (00:08→11:06)
[2017-08-10] MEDS: methylPREDNISolone NA SUCC 40 MG/1 ML VIAL IVPB SCH ×2 (02:04→09:15)
--- NOTE | 2017-08-10 06:16 | PN ---
Physical Exam: SUBJECTIVE: Patient seen and examined by me this Am - No overnight events, hemo stable; afebrile; Still with TRANSPORTATION AID cough, chest tightness, throat pain with breathing; Appetite decreased; ambulated yesterday with oxygen with less SOB - Spoke at length with pt in AM about need for further evaluation for hypoxia; pt very frustrated, wants to leave hospital and return to eating disorder program; Pt counseled on importance of complete evaluation of chronic hypoxia, amenable OBJECTIVE: Vital Signs Intake & Output 08/07/17 08/08/17 08/09/17 08/10/17 23:59 23:59 23:59 23:59 Intake Total 320 200 320 Balance 320 200 320 Period Temp Pulse Resp BP Sys/Coulter Pulse Ox Last 24 Hr 97.4 F-98.2 F 75-125 18-20 121-160/99-125 9-100 GENERAL: A&Ox3, young woman, lying in bed in NAD HEAD: Normal with no signs of trauma. EYES: PERRL, extraocular movements intact, sclera anicteric, conjunctiva clear. No ptosis. ENT: Ears normal, nares patent, oropharynx clear without exudates, moist mucous membranes. NECK: Still with I/E stridor, supple, no JVD LUNGS: Lung with I/E wheezing, vesicular breath sounds, no crackles rhonchi HEART: Regular rate and rhythm, S1, S2 without murmur, rub or gallop. ABDOMEN: Soft, nontender, nondistended, normoactive bowel sounds, no guarding, no rebound, no hepatosplenomegaly, no masses. EXTREMITIES: 2+ pulses, warm, well-perfused, no edema. NEUROLOGICAL: Cranial nerves II through XII grossly intact. Normal speech, gait not observed. Laboratory Results - last 24 hr CBC, BMP 08/09/17 05:30 08/09/17 05:30 08/09/17 08/09/17 08/09/17 05:30 05:30 07:40 WBC 12.2 H RBC 4.67 Hgb 15.5 H Hct 45.1 MCV 96.5 H MCH 33.2 MCHC 34.4 RDW 11.4 L Plt Count 236 MPV 8.0 D-Dimer Puncture Site Right radial ABG pH 7.33 L ABG pCO2 at Pt Temp 63.4 H* D ABG pO2 at Pt Temp 89.2 D ABG HCO3 32.4 H ABG O2 Sat (Measured) 95.8 ABG O2 Content 21.8 ABG Base Excess 4.4 H Michael Test Positive O2 Delivery Device Nasal cannula Oxygen Flow Rate 2l Mechanical Rate No PEEP 0.0 Sodium 134 L Potassium 4.6 Chloride 98 Carbon Dioxide 32 Anion Gap 4 L BUN 23 H Creatinine 0.7 Creat Clearance w eGFR > 60 Random Glucose 125 H Calcium 8.8 Total Bilirubin 0.5 D AST 15 ALT 53 Alkaline Phosphatase 46 Total Protein 6.9 Albumin 3.5 08/09/17 08/09/17 13:40 17:00 WBC RBC Hgb Hct MCV MCH MCHC RDW Plt Count MPV D-Dimer 106 Puncture Site Right radial ABG pH 7.36 ABG pCO2 at Pt Temp 58.7 H ABG pO2 at Pt Temp 53.2 L D ABG HCO3 32.4 H ABG O2 Sat (Measured) 83.4 L ABG O2 Content 19.1 ABG Base Excess 5.2 H Michael Test Positive O2 Delivery Device Room air Oxygen Flow Rate No Mechanical Rate PEEP 0.0 Sodium Potassium Chloride Carbon Dioxide Anion Gap BUN Creatinine Creat Clearance w eGFR Random Glucose Calcium Total Bilirubin AST ALT Alkaline Phosphatase Total Protein Albumin Active Medications Generic Name Dose Route Start Last Admin Trade Name Freq PRN Reason Stop Dose Admin Albuterol Sulfate 1 amp 08/06/17 13:38 08/06/17 13:03 Ventolin 0.042trength) - NEB 1 amp Q4H PRN Administration SHORT OF BREATH/WHEEZING Clonazepam 0.5 mg 08/05/17 10:00 08/09/17 09:28 Klonopin - PO 0.5 mg DAILY [facility] Administration Clonazepam 1.25 mg 08/05/17 22:00 08/09/17 21:01 Klonopin - PO 1.25 mg HS [facility] Administration Enoxaparin Sodium 40 mg 08/05/17 10:00 08/09/17 11:28 Lovenox - SQ 40 mg DAILY [facility] Administration Fluvoxamine Maleate 400 mg 08/05/17 19:00 08/09/17 18:14 Luvox - PO 400 mg DAILY@1900 [facility] Administration Guaifenesin 10 ml 08/05/17 15:12 08/06/17 21:46 Robitussin - PO 10 ml Q4H PRN Administration COUGH Hydralazine HCl 10 mg 08/05/17 22:00 08/09/17 21:01 Apresoline - PO 10 mg BID [facility] Administration Ipratropium [place] 1 amp 08/05/17 15:12 08/06/17 02:05 Atrovent 0.02% Nebulizer - NEB 1 amp Q6H PRN Administration WHEEZING Ipratropium [place] 1 amp 08/06/17 12:00 08/10/17 00:08 Atrovent 0.02% Nebulizer - NEB Not Given Q4H [facility] Methylprednisolone Sodium Succinate 40 mg 08/06/17 12:20 08/10/17 02:04 Solu-Medrol - IVPB 40 mg Q8H-IV [facility] Administration Pantoprazole Sodium 40 mg 08/08/17 10:00 08/09/17 21:01 Protonix - PO 40 mg BID [facility] Administration Polyethylene Glycol 17 gm 08/05/17 10:00 08/09/17 21:01 Miralax (For Daily Use) - PO 17 gm BID [facility] Administration Spironolactone 25 mg 08/05/17 10:00 08/09/17 21:01 Aldactone - PO 25 mg BID [facility] Administration Thiamine HCl 100 mg 08/05/17 10:00 08/09/17 09:28 Vitamin B1 - PO 100 mg DAILY [facility] Administration Trazodone HCl 50 mg 08/05/17 22:00 08/09/17 21:01 Desyrel - PO 50 mg HS [facility] Administration Venlafaxine HCl 75 mg 08/05/17 08:00 08/09/17 09:29 Effexor Xr - PO 75 mg DAILY@0800 [facility] Administration Microbiology 08/05/17 06:08 Nasopharyngeal Swab Influenza Types A,B Antigen (LUCI) - Final 08/05/17 06:08 Nasopharyngeal Swab - Final CXR 08/04 - no pathology. prior spinal fusion CTA 08/05- No pulmonary emboli ECHO 08/07 - Normal LV/RV function, no PFO, no valvulopathy. EF 55-60% CXR 08/09 - IMPRESSION: Shallow inspiration with low lung volumes limiting evaluation of the lung bases. No evidence of airspace consolidation, pulmonary vascular congestion or pleural effusion. Chest CT 08/09 - IMPRESSION: Limited examination of the segmental and subsegmental pulmonary arteries in bilateral lower lobes secondary to streak artifact from Thakur rods. No definite pulmonary artery embolus through the segmental pulmonary artery branches. No evidence of pneumonia. ASSESSMENT/PLAN: 32 yo female with PMH of eating disorder, gastroparesis and HTN presenting with SOB and non productive cough was found to be hypoxic requiring oxygen supplementation. Medical evaluation for hypoxia unremarkable at this point, likely bronchitis and/or LPR given arytenoid erythema on scope. Pulmonary work- up unrevealing at this point. Will pursue heme/onc, cardiology work-up at this point. Optimal plan is discharge without O2, but will continue to reassess. Plan for VQ scan and possible high-res CT to further evaluation lung pathology. #Acute hypoxic respiratory failure - Still with SOB; Prior hx of munchausen syndrome per medical attending at rehab clinic; flu swab negative ; pt desatting to low 80s with no exertion - upper airway scope notable for arytenoid erythema/edema; otherwise normal - c/w IV medrol at current dose - Pulmonary consulted, rec appreciated - continue nebs - Humified O2; titrate to maintain sat >96% - BZs for anxiety - Repeat Pre and post today - outpt PFTs; IS - robitussin - atrovent - continue to evaluate for psychiatric component; consider psych consult - Cardiology consulted, recommends VQ or possible high-resolution CT scan and/ or possible transfer to tertiary care center for further evaluation - Heme/onc consulted - Plan for V/Q scan today; pt refuses transfer to tertiary care center #GERD/LPR - PPI BID - EGD offered as inpatient; pt refused #HTN urgency - improved - Per PMD, pt with severe "white coat HTN" - cont Hydralazine, aldactone #Eating disorder - Pt remains anxious to return to program; spoke to TRANSPORTATION AID at program, Karen Thomas, appraised of pt's hx - low Na diet - monitor for lyte abnormalities - thiamine daily #Depression and Anxiety; - c/w trazodone - cont Luvox - cont Effexor -cont klonopin; PRN for agitation #Gastroparesis - GI consulted, however pt wishes for outpt w/u - miralax for constipation #DVT ppx -lovenox #F/E/N: PO hydration daily lytes low sodium diet Disposition: continue evaluation of hypoxia as inpt Plan discussed with Dr. Sandro Tran, PGY1 Visit type - Emergency Visit Emergency Visit: Yes ED Registration Date: 08/05/17 Care time: The patient presented to the Emergency Department on the above date and was hospitalized for further evaluation of their emergent condition. - New Patient This patient is new to me today: No - Critical Care Critical Care patient: No
--- NOTE | 2017-08-10 07:47 | PN ---
Teaching Attending Note Name of Resident: Bernard Tran ATTENDING PHYSICIAN STATEMENT I saw and evaluated the patient. I reviewed the resident's note and discussed the case with the resident. I agree with the resident's findings and plan as documented with exceptions mentioned below. SUBJECTIVE: Patient seen and examined. overall better, no new complaints. OBJECTIVE: Vital Signs Period Temp Pulse Resp BP Sys/Coulter Pulse Ox Last 24 Hr 97.4 F-98.2 F 75-125 18-20 121-160/99-125 9-100 Intake & Output 08/07/17 08/08/17 08/09/17 08/10/17 23:59 23:59 23:59 23:59 Intake Total 320 200 320 Balance 320 200 320 General sitting in bed, anxious but in no acute distress Chest: mild wheezing, good air entry bilaterally Home Medication List Medication Instructions Recorded Confirmed Type Azithromycin 250 mg PO DAILY 08/04/17 08/04/17 History Clonazepam [Klonopin] 1.25 mg PO BID 08/04/17 08/04/17 History Desvenlafaxine Succinate [Pristiq 25 mg PO DAILY 08/04/17 08/04/17 History ER] Fluvoxamine Maleate [Luvox -] 400 mg PO DAILY 08/04/17 08/05/17 History Lisinopril 5 mg PO PRN 08/04/17 08/04/17 History Spironolactone 25 mg PO DAILY 08/04/17 08/04/17 History Active Medications Generic Name Dose Route Start Last Admin Trade Name Freq PRN Reason Stop Dose Admin Albuterol Sulfate 1 amp 08/06/17 13:38 08/06/17 13:03 Ventolin 0.042trength) - NEB 1 amp Q4H PRN Administration SHORT OF BREATH/WHEEZING Clonazepam 0.5 mg 08/05/17 10:00 08/09/17 09:28 Klonopin - PO 0.5 mg DAILY [facility] Administration Clonazepam 1.25 mg 08/05/17 22:00 08/09/17 21:01 Klonopin - PO 1.25 mg HS [facility] Administration Enoxaparin Sodium 40 mg 08/05/17 10:00 08/09/17 11:28 Lovenox - SQ 40 mg DAILY [facility] Administration Fluvoxamine Maleate 400 mg 08/05/17 19:00 08/09/17 18:14 Luvox - PO 400 mg DAILY@1900 [facility] Administration Guaifenesin 10 ml 08/05/17 15:12 08/06/17 21:46 Robitussin - PO 10 ml Q4H PRN Administration COUGH Hydralazine HCl 10 mg 08/05/17 22:00 08/09/17 21:01 Apresoline - PO 10 mg BID [facility] Administration Ipratropium [place] 1 amp 08/05/17 15:12 08/06/17 02:05 Atrovent 0.02% Nebulizer - NEB 1 amp Q6H PRN Administration WHEEZING Ipratropium [place] 1 amp 08/06/17 12:00 08/10/17 07:42 Atrovent 0.02% Nebulizer - NEB 1 amp Q4H [facility] Administration Methylprednisolone Sodium Succinate 40 mg 08/06/17 12:20 08/10/17 02:04 Solu-Medrol - IVPB 40 mg Q8H-IV [facility] Administration Pantoprazole Sodium 40 mg 08/08/17 10:00 08/09/17 21:01 Protonix - PO 40 mg BID [facility] Administration Polyethylene Glycol 17 gm 08/05/17 10:00 08/09/17 21:01 Miralax (For Daily Use) - PO 17 gm BID [facility] Administration Spironolactone 25 mg 08/05/17 10:00 08/09/17 21:01 Aldactone - PO 25 mg BID [facility] Administration Thiamine HCl 100 mg 08/05/17 10:00 08/09/17 09:28 Vitamin B1 - PO 100 mg DAILY [facility] Administration Trazodone HCl 50 mg 08/05/17 22:00 08/09/17 21:01 Desyrel - PO 50 mg HS [facility] Administration Venlafaxine HCl 75 mg 08/05/17 08:00 08/09/17 09:29 Effexor Xr - PO 75 mg DAILY@0800 [facility] Administration Repeat CT chest results reviewed ASSESSMENT AND PLAN: 32 yo F with PMH eating disorder, Manchausen's syndrome, gastroparesis and HTN admitted with hypoxia/shortness of breath suspected from laryngeal spasms/ irritation from purging. -Acute hypoxic respiratory failure, concern for laryngospasms or irritation from purging -Arytenoid erythema/edema, suspected from GERD. 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 CTA neg x 2. Cardiology/pulmonary input appreciated. V/q scan. However suspected hypoventilation, bedside spirometry with combined restrictive/constrictive pattern. Change to prednisone 60 m daily. s/p laryngoscopy with arytenoid edema consistent with GERD. Protonix to BID. Will need eventual EGD/GI input once oxygenation/BP have improved. ?Azithromycin for gastroparesis, no prior EGD per discussion with patient and Karen Thomas FIRE PROTECTION SPECIALIST at the facility. Offered inpatient GI input for possible EGD, patient declines currently, would want to pursue outpatient. Currently tolerating diet well with no GI concerns, will place on PPI BID and outpatient GI follow up. Recurrent leucocytosis, suspect steroid induced 2D echo results reviewed. Per discussion with PCP, 'white coat hypertension', seems likely etiology for her refractory HTN, continue clonazepam, aldactone, hydralazine. Continue trazodone/venlafaxine. Intermittent hypoxia noted, ABG noted. ?etiology, ?Psychogenic. CTA/2D echo non concerning. Flexible laryngoscopy with no acute concerns. V/q scan. DVTPPx with lovenox. Discussedwith PCP Orquidea Carrillo (ph: [phone] and fx: [phone]), recommends dc on oxygen as long as stable and will closely follow patient outpatient and if fails to improved over next few weeks, aware to consider High resolution CT/additional testing as indicated. Pulmonary input appreciate. Will plan for d/c in 24 hours as long as no new events. Discussed with patient and all questions answered.
[2017-08-10 08:53] LABS: HEMATOCRIT 45.2 % (32.4-45.2); MCH 33.7 pg (25.7-33.7); MCHC 35.4 g/dl (32.0-36.0); MEAN CELL VOLUME 95.1 fl (80-96); MEAN PLT VOLUME 7.9 fl (7.5-11.1); PLATELET COUNT 230 K/MM3 (134-434); RBC 4.75 M/mm3 (3.60-5.2); RDW 11.2 % (11.6-15.6); WHITE BLOOD COUNT 10.8 K/mm3 (4.0-10.0)
[2017-08-10] MEDS: hydrALAZINE HCL 10 MG TABLET PO SCH ×2 (09:14→22:35)
[2017-08-10] MEDS: THIAMINE HCL 100 MG TABLET (FP) PO SCH (09:14)
[2017-08-10] MEDS: PANTOPRAZOLE 40 MG TABLET (FP) PO SCH ×2 (09:14→22:35)
[2017-08-10] MEDS: ENOXAPARIN NA (PORCINE) 40 MG/0.4 ML DISP.SYRIN SQ SCH (09:15)
[2017-08-10] MEDS: SPIRONOLACTONE 25 MG TABLET (FP) PO SCH ×2 (09:15→22:35)
[2017-08-10] MEDS: clonazePAM 0.5 MG TABLET PO SCH ×2 (09:15→22:35)
[2017-08-10 09:17] LABS: ANION GAP 10 (8-16); BLOOD UREA NITROGEN 25 mg/dL (7-18); CALCIUM 9.1 mg/dL (8.5-10.1); CHLORIDE 96 mmol/L (98-107); CO2 31 mmol/L (21-32); CREATININE 0.6 mg/dL (0.55-1.02); GLUCOSE,RANDOM 133 mg/dL (74-106); POTASSIUM 4.5 mmol/L (3.5-5.1); SODIUM 137 mmol/L (136-145)
[2017-08-10] MEDS: VENLAFAXINE HCL 75 MG E.R. CAPSULES (FP) PO SCH (09:17)
[2017-08-10] MEDS: POLYETHYLENE GLYCOL 3350 119 GM BTL PO SCH ×2 (09:25→22:31)
[2017-08-10] MEDS ORDERED: INSULIN (NOVOLOG) ASPART 100 UNITS/ML 10ML VIAL ONE (11:34)
--- NOTE | 2017-08-10 13:35 | CONSULT ---
Consult Consult Specialty:: Hematology - History of Present Illness History of Present Illness: 32 yo female with PMH of eating disorder, gastroparesis and HTN presenting with SOB and non productive cough was found to be hypoxic requiring oxygen supplementation. Chart reviewed in detail. 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 No: Asthma, COPD, O2 Dependent, Pneumonia Gastrointestinal: No: Ascites Hepatobiliary: No: Cirrhosis Renal/: No: Renal Failure ...: No Musculoskeletal: No: Osteoarthritis Rheumatology: No: Fibromyalgia Endocrine: No: Zafar's Disease, Diabetes Mellitus - Past Surgical History Additional Surgical History: extensive scoliosis repair 10 years ago - Alcohol/Substance Use Hx Alcohol Use: No History of Substance Use: reports: None - Smoking History Smoking history: Never smoked Have you smoked in the past 12 months: No Home Medications - Allergies Allergies/Adverse Reactions: Allergies Allergy/AdvReac Type Severity Reaction Status Date / Time lamotrigine [From Lamictal] Allergy Verified 08/04/17 21:22 - Home Medications Home Medications: Ambulatory Orders Azithromycin 250 mg PO DAILY 08/04/17 Clonazepam [Klonopin] 1.25 mg PO BID 08/04/17 Desvenlafaxine Succinate [Pristiq ER] 25 mg PO DAILY 08/04/17 Fluvoxamine Maleate [Luvox -] 400 mg PO DAILY 08/04/17 Lisinopril 5 mg PO PRN 08/04/17 Spironolactone 25 mg PO DAILY 08/04/17 Physical Exam Vital Signs: Vital Signs Temperature 98.0 F 08/10/17 06:00 Pulse Rate 122 H 08/10/17 06:00 Respiratory Rate 20 08/10/17 06:00 Blood Pressure 134/107 08/10/17 06:00 O2 Sat by Pulse Oximetry (%) 100 08/10/17 01:25 Constitutional: Yes: Calm Eyes: Yes: Conjunctiva Clear HENT: Yes: Atraumatic, Normocephalic Neck: Yes: Supple Cardiovascular: Yes: Regular Rate and Rhythm Respiratory: Yes: Regular, Cough, Poor Air Entry, Wheezes Gastrointestinal: Yes: Normal Bowel Sounds, Soft. No: Abdomen, Obese Extremities: Yes: WNL Edema: No Neurological: Yes: Alert, Oriented Labs: CBC, BMP 08/10/17 08:18 08/10/17 08:18 Imaging - Results Cat Scan: Report Reviewed Assessment/Plan No hematological cause of Hypoxia that can be explained here. Her Hct was in 40s earlier this year , now 45 indicating it most likely sec to recent hypoxia. US abdomen , r/o splenomegaly Cardiology consult Pulm c/s noted
--- NOTE | 2017-08-10 14:00 | PN ---
Progress Note (short form) - Note Progress Note: PULMONARY States breathing is slightly improved today. Still with significant pain with deep inspiration and coughing. Desaturates to 70s off supplemental oxygen but increases to high 90s with deep breathing. Last Vital Signs Temp Pulse Resp BP Pulse Ox 98.0 F 122 H 20 134/107 100 08/10/17 06:00 08/10/17 06:00 08/10/17 06:00 08/10/17 06:00 08/10/17 01:25 Intake & Output 08/07/17 08/08/17 08/09/17 08/10/17 23:59 23:59 23:59 23:59 Intake Total 320 200 320 120 Balance 320 200 320 120 Gen: shallow breaths Heart: tachycardic, regular Lung: decreased breath sounds at the bases, bilateral scattered rhonchi, wheezes, inspiratory squeaks Abd: soft, nontender Ext: no edema, no calf tenderness CBC, BMP 08/10/17 08:18 08/10/17 08:18 Active Medications Albuterol Sulfate (Ventolin 0.042trength) -) 1 amp NEB Q4H PRN PRN Reason: SHORT OF BREATH/WHEEZING Last Admin: 08/06/17 13:03 Dose: 1 amp Clonazepam (Klonopin -) 0.5 mg PO DAILY [facility] Last Admin: 08/10/17 09:15 Dose: 0.5 mg Clonazepam (Klonopin -) 1.25 mg PO HS [facility] Last Admin: 08/09/17 21:01 Dose: 1.25 mg Enoxaparin Sodium (Lovenox -) 40 mg SQ DAILY [facility] Last Admin: 08/10/17 09:15 Dose: 40 mg Fluvoxamine Maleate (Luvox -) 400 mg PO DAILY@1900 [facility] Last Admin: 08/09/17 18:14 Dose: 400 mg Guaifenesin (Robitussin -) 10 ml PO Q4H PRN PRN Reason: COUGH Last Admin: 08/06/17 21:46 Dose: 10 ml Hydralazine HCl (Apresoline -) 10 mg PO BID [facility] Last Admin: 08/10/17 09:14 Dose: 10 mg Ipratropium [place] (Atrovent 0.02% Nebulizer -) 1 amp NEB Q6H PRN PRN Reason: WHEEZING Last Admin: 08/06/17 02:05 Dose: 1 amp Ipratropium [place] (Atrovent 0.02% Nebulizer -) 1 amp NEB Q4H [facility] Last Admin: 08/10/17 11:06 Dose: 1 amp Methylprednisolone Sodium Succinate (Solu-Medrol -) 40 mg IVPB Q12H [facility] Pantoprazole Sodium (Protonix -) 40 mg PO BID [facility] Last Admin: 08/10/17 09:14 Dose: 40 mg Polyethylene Glycol (Miralax (For Daily Use) -) 17 gm PO BID [facility] Last Admin: 08/10/17 09:25 Dose: Not Given Spironolactone (Aldactone -) 25 mg PO BID [facility] Last Admin: 08/10/17 09:15 Dose: 25 mg Thiamine HCl (Vitamin B1 -) 100 mg PO DAILY [facility] Last Admin: 08/10/17 09:14 Dose: 100 mg Trazodone HCl (Desyrel -) 50 mg PO HS [facility] Last Admin: 08/09/17 21:01 Dose: 50 mg Venlafaxine HCl (Effexor Xr -) 75 mg PO DAILY@0800 [facility] Last Admin: 08/10/17 09:17 Dose: 75 mg A/P Acute Hypoxic Respiratory Failure Hypoventilation Syndrome from Costochondritis Acute Bronchitis/Acute Bronchospasm GERD Anorexia - bedside spirometry performed which is suggestive of combined obstructive and restrictive lung disease (placed in front of chart) - life threatening reasons for her hypoxia have been ruled out including pulmonary embolism, intracardiac shunt or parenchymal causes - lung exam consistent with asthma/COPD exacerbation which can contribute to V/ Q mismatching and hypoxia - she also has underlying restrictive lung disease with her scoliosis and Thakur rods giving her less pulmonary reserve - she is clearly splinting with normal breaths, limiting her tidal volumes and increasing her space - her hypoxia is likely from hypoventilation with multifactorial etiologies but normalizes with normal/deep breathing - continue steroids, can change to prednisone 40mg daily and taper by 10mg q3 days - inhaled bronchodilators standing and PRN - O2 to keep SpO2 >90% - needs pain control for her costochondritis, can start with NSAIDs - can discharge from pulmonary standpoint as long as she has her prednisone, bronchodilators and home O2 - will need outpt f/u and PFTs when respiratory status improved - can defer V/Q scan, low suspicion for PE at this time
[2017-08-10] MEDS: ALBUTEROL SO4 2.5/IPRATROPIUM 0.5 INH SOL 3 ML VIAL.NEB. NEB SCH ×2 (15:25→19:40)
--- NOTE | 2017-08-10 15:56 | CON.CARD ---
Consult Consult Specialty:: Cardiology Referred by:: Hospitalist Medicine Reason for Consultation:: Dyspnea, hypoxia - History of Present Illness Chief Complaint: Dyspnea, hypoxia History of Present Illness: 32 yo F never smoker with h/o HTN, anxiety disorder, and anorexia nervosa, admitted w/ progressive SOB at rest, dry cough and increased JUAN refractory to duoneb and steroid therapy, reports post-tussive cough. Chest CTA negative for pulmonary emboli, echo negative for shunting, ENT evaluation consistent with laryngopharyngeal reflux and started on PPI, she feels improved with IV steroids and bronchodilators. 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 No: Asthma, COPD, O2 Dependent, Pneumonia Gastrointestinal: No: Ascites Hepatobiliary: No: Cirrhosis Renal/: No: Renal Failure ...: No Musculoskeletal: No: Osteoarthritis Rheumatology: No: Fibromyalgia Endocrine: No: [place]'s Disease, Diabetes Mellitus - Past Surgical History Additional Surgical History: extensive scoliosis repair 10 years ago - Alcohol/Substance Use Hx Alcohol Use: No History of Substance Use: reports: None - Smoking History Smoking history: Never smoked Have you smoked in the past 12 months: No Home Medications - Allergies Allergies/Adverse Reactions: Allergies Allergy/AdvReac Type Severity Reaction Status Date / Time lamotrigine [From Lamictal] Allergy Verified 08/04/17 21:22 - Home Medications Home Medications: Ambulatory Orders Azithromycin 250 mg PO DAILY 08/04/17 Clonazepam [Klonopin] 1.25 mg PO BID 08/04/17 Desvenlafaxine Succinate [Pristiq ER] 25 mg PO DAILY 08/04/17 Fluvoxamine Maleate [Luvox -] 400 mg PO DAILY 08/04/17 Lisinopril 5 mg PO PRN 08/04/17 Spironolactone 25 mg PO DAILY 08/04/17 Review of Systems - Review of Systems Respiratory: reports: Cough, SOB, SOB on Exertion Vital Signs: Vital Signs Temperature 98.9 F 08/10/17 15:01 Pulse Rate 70 08/10/17 15:01 Respiratory Rate 16 08/10/17 15:01 Blood Pressure 165/106 08/10/17 15:01 O2 Sat by Pulse Oximetry (%) 95 08/10/17 09:00 Constitutional: Yes: No Distress, Calm, Thin Neck: Yes: Supple Respiratory: Yes: Regular, Cough, Diminished, On Nasal O2 Gastrointestinal: Yes: Normal Bowel Sounds, Soft Cardiovascular: Yes: Regular Rate and Rhythm JVD: No Carotid Bruit: No Heart Sounds: Yes: S1, S2 Edema: No - Other Data Labs, Other Data: CBC, BMP 08/10/17 08:18 08/10/17 08:18 Imaging - Results Cat Scan: Report Reviewed (Neg fo PE or PNA, + Thakur rods) Problem List - Problems (1) Laryngopharyngeal reflux Code(s): K21.9 - GASTRO-ESOPHAGEAL REFLUX DISEASE WITHOUT ESOPHAGITIS (2) Acute asthma exacerbation Code(s): J45.901 - UNSPECIFIED ASTHMA WITH (ACUTE) EXACERBATION Qualifiers: Asthma severity: unspecified severity (3) Costochondritis Code(s): M94.0 - CHONDROCOSTAL JUNCTION SYNDROME [TIETZE] (4) H/O spinal fusion Code(s): Z98.1 - ARTHRODESIS STATUS (5) Hypertension Code(s): I10 - ESSENTIAL (PRIMARY) HYPERTENSION Qualifiers: Hypertension type: essential hypertension Qualified Code(s): I10 - Essential (primary) hypertension (6) Hypoventilation syndrome Code(s): R06.89 - OTHER ABNORMALITIES OF BREATHING (7) Hypoxia Code(s): R09.02 - HYPOXEMIA (8) SOB (shortness of breath) Code(s): R06.02 - SHORTNESS OF BREATH (9) Acute hypoxemic respiratory failure Code(s): J96.01 - ACUTE RESPIRATORY FAILURE WITH HYPOXIA Assessment/Plan 08/07/2017 Echo: Normal LV size and fxn without sig valve abnl, no intracardiac shunts 1. Acute hypercapneic, hypoxemic Respiratory Failure 2. Acute Bronchitis/Acute Bronchospasm with hypoventilation 3. Laryngopharyngeal reflux, gastroparesis 4. Anorexia 5. Scoliosis post Thakur rods 6. Hypertensive urgency P:1. Bedside spirometry performed suggests combined obstructive and restrictive lung disease 2. Deep breathing exercises, incentive spirometry 3. BD, oral steroid taper, O2 as needed, analgesia as needed for splinting 4. Outpatient PFTs 5. Continue lisinopril 5 qd and Aldactone 25 bid as hemodynamics tolerate 6. Thank you for consultative opportunity
[2017-08-10 18:58] LABS: LDH 148 U/L (84-246)
[2017-08-10] MEDS: traZODone HCL 50 MG TABLET (FP) PO SCH (22:34)
[2017-08-10] MEDS: methylPREDNISolone NA SUCC 40 MG/1 ML VIAL IVPUSH SCH (22:35)
--- NOTE | 2017-08-11 06:19 | PN ---
Physical Exam: SUBJECTIVE: Patient seen and examined OBJECTIVE: Vital Signs Intake & Output 08/08/17 08/09/17 08/10/17 08/11/17 23:59 23:59 23:59 23:59 Intake Total 200 320 660 Balance 200 320 660 Period Temp Pulse Resp BP Sys/Coulter Pulse Ox Last 24 Hr 97.6 F-98.9 F 70-138 16-20 116-165/83-113 95-98 GENERAL: A&Ox3, young woman, lying in bed in NAD HEAD: Normal with no signs of trauma. EYES: PERRL, extraocular movements intact, sclera anicteric, conjunctiva clear. No ptosis. ENT: Ears normal, nares patent, oropharynx clear without exudates, moist mucous membranes. NECK: Still with I/E stridor, supple, no JVD LUNGS: Lung with I/E wheezing, vesicular breath sounds, no crackles rhonchi HEART: Regular rate and rhythm, S1, S2 without murmur, rub or gallop. ABDOMEN: Soft, nontender, nondistended, normoactive bowel sounds, no guarding, no rebound, no hepatosplenomegaly, no masses. EXTREMITIES: 2+ pulses, warm, well-perfused, no edema. NEUROLOGICAL: Cranial nerves II through XII grossly intact. Normal speech, gait not observed. Laboratory Results - last 24 hr CBC, BMP 08/10/17 08:18 08/10/17 08:18 08/10/17 08/10/17 08:18 08:18 WBC 10.8 H RBC 4.75 Hgb 16.0 H Hct 45.2 MCV 95.1 MCH 33.7 MCHC 35.4 RDW 11.2 L Plt Count 230 MPV 7.9 Sodium 137 Potassium 4.5 Chloride 96 L Carbon Dioxide 31 Anion Gap 10 BUN 25 H Creatinine 0.6 Random Glucose 133 H Calcium 9.1 LD Total 148 Active Medications Generic Name Dose Route Start Last Admin Trade Name Freq PRN Reason Stop Dose Admin Albuterol Sulfate 1 amp 08/06/17 13:38 08/06/17 13:03 Ventolin 0.042trength) - NEB 1 amp Q4H PRN Administration SHORT OF BREATH/WHEEZING Albuterol/Ipratropium 1 amp 08/10/17 16:00 08/10/17 19:40 Duoneb - NEB 1 amp RQID [facility] Administration Clonazepam 0.5 mg 08/05/17 10:00 08/10/17 09:15 Klonopin - PO 0.5 mg DAILY [facility] Administration Clonazepam 1.25 mg 08/05/17 22:00 08/10/17 22:35 Klonopin - PO 1.25 mg HS [facility] Administration Enoxaparin Sodium 40 mg 08/05/17 10:00 08/10/17 09:15 Lovenox - SQ 40 mg DAILY [facility] Administration Fluvoxamine Maleate 400 mg 08/05/17 19:00 08/10/17 18:17 Luvox - PO 400 mg DAILY@1900 [facility] Administration Guaifenesin 10 ml 08/05/17 15:12 08/06/17 21:46 Robitussin - PO 10 ml Q4H PRN Administration COUGH Hydralazine HCl 10 mg 08/05/17 22:00 08/10/17 22:35 Apresoline - PO 10 mg BID [facility] Administration Methylprednisolone Sodium Succinate 40 mg 08/10/17 22:00 08/10/17 22:35 Solu-Medrol - IVPUSH 40 mg BID [facility] Administration Pantoprazole Sodium 40 mg 08/08/17 10:00 08/10/17 22:35 Protonix - PO 40 mg BID [facility] Administration Polyethylene Glycol 17 gm 08/05/17 10:00 08/10/17 22:31 Miralax (For Daily Use) - PO 17 gm BID [facility] Administration Spironolactone 25 mg 08/05/17 10:00 08/10/17 22:35 Aldactone - PO 25 mg BID [facility] Administration Thiamine HCl 100 mg 08/05/17 10:00 08/10/17 09:14 Vitamin B1 - PO 100 mg DAILY [facility] Administration Trazodone HCl 50 mg 08/05/17 22:00 08/10/17 22:34 Desyrel - PO 50 mg HS [facility] Administration Venlafaxine HCl 75 mg 08/05/17 08:00 08/10/17 09:17 Effexor Xr - PO 75 mg DAILY@0800 [facility] Administration Microbiology 08/05/17 06:08 Nasopharyngeal Swab Influenza Types A,B Antigen (LUCI) - Final 08/05/17 06:08 Nasopharyngeal Swab - Final CXR 08/04 - no pathology. prior spinal fusion CTA 08/05- No pulmonary emboli ECHO 08/07 - Normal LV/RV function, no PFO, no valvulopathy. EF 55-60% CXR 08/09 - IMPRESSION: Shallow inspiration with low lung volumes limiting evaluation of the lung bases. No evidence of airspace consolidation, pulmonary vascular congestion or pleural effusion. Chest CT 08/09 - IMPRESSION: Limited examination of the segmental and subsegmental pulmonary arteries in bilateral lower lobes secondary to streak artifact from Thakur rods. No definite pulmonary artery embolus through the segmental pulmonary artery branches. No evidence of pneumonia. AB US 08/10 - No pathology noted ASSESSMENT/PLAN: 32 yo female with PMH of eating disorder, gastroparesis and HTN presenting with SOB and non productive cough was found to be hypoxic requiring oxygen supplementation. Medical evaluation for hypoxia unremarkable at this point, likely bronchitis and/or LPR given arytenoid erythema on scope. Pulmonary work- up unrevealing at this point. Will pursue heme/onc, cardiology work-up at this point. Optimal plan is discharge without O2, but will continue to reassess. Plan for VQ scan and possible high-res CT to further evaluation lung pathology. #Acute hypoxic respiratory failure - Still with SOB; Prior hx of munchausen syndrome per medical attending at rehab clinic; flu swab negative ; pt desatting to low 80s with no exertion - upper airway scope notable for arytenoid erythema/edema; otherwise normal - c/w IV medrol at current dose - Pulmonary consulted, rec appreciated - continue nebs - Humified O2; titrate to maintain sat >96% - BZs for anxiety - Repeat Pre and post today - outpt PFTs; IS - robitussin - atrovent - continue to evaluate for psychiatric component; consider psych consult - Cardiology consulted, recommends VQ or possible high-resolution CT scan and/ or possible transfer to tertiary care center for further evaluation - Heme/onc consulted - Plan for V/Q scan today; pt refuses transfer to tertiary care center #GERD/LPR - PPI BID - EGD offered as inpatient; pt refused #HTN urgency - improved - Per PMD, pt with severe "white coat HTN" - cont Hydralazine, aldactone #Eating disorder - Pt remains anxious to return to program; spoke to AURIST at program, Karen Thomas, appraised of pt's hx - low Na diet - monitor for lyte abnormalities - thiamine daily #Depression and Anxiety; - c/w trazodone - cont Luvox - cont Effexor -cont klonopin; PRN for agitation #Gastroparesis - GI consulted, however pt wishes for outpt w/u - miralax for constipation #DVT ppx -lovenox #F/E/N: PO hydration daily lytes low sodium diet Disposition: continue evaluation of hypoxia as inpt Plan discussed with Dr. Sandro Tran, PGY1
[2017-08-11] MEDS: ALBUTEROL SO4 2.5/IPRATROPIUM 0.5 INH SOL 3 ML VIAL.NEB. NEB SCH ×3 (07:35→16:16)
[2017-08-11] MEDS ORDERED: PT OWN MED DRAWER 7, Y5N ONE (08:59)
[2017-08-11] MEDS: ENOXAPARIN NA (PORCINE) 40 MG/0.4 ML DISP.SYRIN SQ SCH (09:04)
[2017-08-11] MEDS: methylPREDNISolone NA SUCC 40 MG/1 ML VIAL IVPUSH SCH (09:05)
[2017-08-11] MEDS: clonazePAM 0.5 MG TABLET PO SCH (09:05)
[2017-08-11] MEDS: THIAMINE HCL 100 MG TABLET (FP) PO SCH (09:05)
[2017-08-11] MEDS: PANTOPRAZOLE 40 MG TABLET (FP) PO SCH (09:06)
[2017-08-11] MEDS: SPIRONOLACTONE 25 MG TABLET (FP) PO SCH (09:06)
[2017-08-11] MEDS: hydrALAZINE HCL 10 MG TABLET PO SCH (09:06)
[2017-08-11] MEDS: VENLAFAXINE HCL 75 MG E.R. CAPSULES (FP) PO SCH (09:09)
[2017-08-11] MEDS: POLYETHYLENE GLYCOL 3350 119 GM BTL PO SCH (09:15)
--- NOTE | 2017-08-11 10:22 | PN ---
Progress Note, Physician History of Present Illness: JUAN slowly improving. - Current Medication List Current Medications: Active Medications Albuterol Sulfate (Ventolin 0.042trength) -) 1 amp NEB Q4H PRN PRN Reason: SHORT OF BREATH/WHEEZING Last Admin: 08/06/17 13:03 Dose: 1 amp Albuterol/Ipratropium (Duoneb -) 1 amp NEB RQID [facility] Last Admin: 08/11/17 07:35 Dose: 1 amp Clonazepam (Klonopin -) 0.5 mg PO DAILY [facility] Last Admin: 08/11/17 09:05 Dose: 0.5 mg Clonazepam (Klonopin -) 1.25 mg PO HS [facility] Last Admin: 08/10/17 22:35 Dose: 1.25 mg Enoxaparin Sodium (Lovenox -) 40 mg SQ DAILY [facility] Last Admin: 08/11/17 09:04 Dose: 40 mg Fluvoxamine Maleate (Luvox -) 400 mg PO DAILY@1900 [facility] Last Admin: 08/10/17 18:17 Dose: 400 mg Guaifenesin (Robitussin -) 10 ml PO Q4H PRN PRN Reason: COUGH Last Admin: 08/06/17 21:46 Dose: 10 ml Hydralazine HCl (Apresoline -) 10 mg PO BID [facility] Last Admin: 08/11/17 09:06 Dose: 10 mg Methylprednisolone Sodium Succinate (Solu-Medrol -) 40 mg IVPUSH BID [facility] Last Admin: 08/11/17 09:05 Dose: 40 mg Pantoprazole Sodium (Protonix -) 40 mg PO BID [facility] Last Admin: 08/11/17 09:06 Dose: 40 mg Polyethylene Glycol (Miralax (For Daily Use) -) 17 gm PO BID [facility] Last Admin: 08/11/17 09:15 Dose: 17 gm Spironolactone (Aldactone -) 25 mg PO BID [facility] Last Admin: 08/11/17 09:06 Dose: 25 mg Thiamine HCl (Vitamin B1 -) 100 mg PO DAILY [facility] Last Admin: 08/11/17 09:05 Dose: 100 mg Trazodone HCl (Desyrel -) 50 mg PO HS [facility] Last Admin: 08/10/17 22:34 Dose: 50 mg Venlafaxine HCl (Effexor Xr -) 75 mg PO DAILY@0800 [facility] Last Admin: 08/11/17 09:09 Dose: 75 mg - Objective Vital Signs: Vital Signs Temperature 97.6 F 08/11/17 06:00 Pulse Rate 117 H 08/11/17 06:00 Respiratory Rate 20 08/11/17 06:00 Blood Pressure 145/91 08/11/17 06:00 O2 Sat by Pulse Oximetry (%) 98 08/11/17 05:00 Constitutional: Yes: No Distress, Calm, Thin Neck: Yes: Supple Cardiovascular: Yes: Regular Rate and Rhythm Respiratory: Yes: Regular, Diminished, On Nasal O2 Gastrointestinal: Yes: Normal Bowel Sounds, Soft Edema: No Labs: CBC, BMP 08/10/17 08:18 08/10/17 08:18 - ....Imaging Ultrasound: Report Reviewed (Negative) EKG: Report Reviewed (Tele: Sinus rhythm) Problem List - Problems (1) Laryngopharyngeal reflux Code(s): K21.9 - GASTRO-ESOPHAGEAL REFLUX DISEASE WITHOUT ESOPHAGITIS (2) Acute asthma exacerbation Code(s): J45.901 - UNSPECIFIED ASTHMA WITH (ACUTE) EXACERBATION Qualifiers: Asthma severity: unspecified severity (3) Costochondritis Code(s): M94.0 - CHONDROCOSTAL JUNCTION SYNDROME [TIETZE] (4) H/O spinal fusion Code(s): Z98.1 - ARTHRODESIS STATUS (5) Hypertension Code(s): I10 - ESSENTIAL (PRIMARY) HYPERTENSION Qualifiers: Hypertension type: essential hypertension Qualified Code(s): I10 - Essential (primary) hypertension (6) Hypoventilation syndrome Code(s): R06.89 - OTHER ABNORMALITIES OF BREATHING (7) Hypoxia Code(s): R09.02 - HYPOXEMIA (8) SOB (shortness of breath) Code(s): R06.02 - SHORTNESS OF BREATH (9) Acute hypoxemic respiratory failure Code(s): J96.01 - ACUTE RESPIRATORY FAILURE WITH HYPOXIA Assessment/Plan 08/07/2017 Echo: Normal LV size and fxn without sig valve abnl, no intracardiac shunts 1. Acute hypercapneic, hypoxemic Respiratory Failure 2. Acute Bronchitis/Acute Bronchospasm with hypoventilation 3. Laryngopharyngeal reflux, gastroparesis 4. Anorexia 5. Scoliosis post Thakur rods 6. Hypertensive urgency improved P:1. Bedside spirometry performed suggests combined obstructive and restrictive lung disease 2. Deep breathing exercises, incentive spirometry 3. BD, oral steroid taper, O2 as needed, analgesia as needed for splinting 4. Outpatient PFTs 5. Continue lisinopril 5 qd and Aldactone 25 bid as hemodynamics tolerate 6. DVT prophylaxis
--- NOTE | 2017-08-11 13:44 | PN ---
Teaching Attending Note Name of Resident: Bernard Tran ATTENDING PHYSICIAN STATEMENT I saw and evaluated the patient. I reviewed the resident's note and discussed the case with the resident. I agree with the resident's findings and plan as documented with exceptions mentioned. . SUBJECTIVE: Patient seen and examined. NO new complaints, anxious to return back to her facility OBJECTIVE: Vital Signs Period Temp Pulse Resp BP Sys/Coulter Pulse Ox Last 24 Hr 97.6 F-98.9 F 70-138 16-20 116-165/83-113 95-98 Intake & Output 08/08/17 08/09/17 08/10/17 08/11/17 23:59 23:59 23:59 23:59 Intake Total 200 320 660 Balance 200 320 660 General: sitting in bed in no acute distress Chest: no rales or wheezing, positive air entry Home Medication List Medication Instructions Recorded Confirmed Type Azithromycin 250 mg PO DAILY 08/04/17 08/04/17 History Clonazepam [Klonopin] 1.25 mg PO BID 08/04/17 08/04/17 History Desvenlafaxine Succinate [Pristiq 25 mg PO DAILY 08/04/17 08/04/17 History ER] Fluvoxamine Maleate [Luvox -] 400 mg PO DAILY 08/04/17 08/05/17 History Lisinopril 5 mg PO PRN 08/04/17 08/04/17 History Spironolactone 25 mg PO DAILY 08/04/17 08/04/17 History Active Medications Generic Name Dose Route Start Last Admin Trade Name Freq PRN Reason Stop Dose Admin Albuterol Sulfate 1 amp 08/06/17 13:38 08/06/17 13:03 Ventolin 0.042trength) - NEB 1 amp Q4H PRN Administration SHORT OF BREATH/WHEEZING Albuterol/Ipratropium 1 amp 08/10/17 16:00 08/11/17 11:11 Duoneb - NEB 1 amp RQID [facility] Administration Clonazepam 0.5 mg 08/05/17 10:00 08/11/17 09:05 Klonopin - PO 0.5 mg DAILY [facility] Administration Clonazepam 1.25 mg 08/05/17 22:00 08/10/17 22:35 Klonopin - PO 1.25 mg HS [facility] Administration Enoxaparin Sodium 40 mg 08/05/17 10:00 08/11/17 09:04 Lovenox - SQ 40 mg DAILY [facility] Administration Fluvoxamine Maleate 400 mg 08/05/17 19:00 08/10/17 18:17 Luvox - PO 400 mg DAILY@1900 [facility] Administration Guaifenesin 10 ml 08/05/17 15:12 08/06/17 21:46 Robitussin - PO 10 ml Q4H PRN Administration COUGH Lisinopril 5 mg 08/12/17 10:00 Prinivil PO DAILY [facility] Pantoprazole Sodium 40 mg 08/08/17 10:00 08/11/17 09:06 Protonix - PO 40 mg BID [facility] Administration Polyethylene Glycol 17 gm 08/05/17 10:00 08/11/17 09:15 Miralax (For Daily Use) - PO 17 gm BID [facility] Administration Prednisone 40 mg 08/12/17 10:00 Deltasone - PO DAILY [facility] Spironolactone 25 mg 08/05/17 10:00 08/11/17 09:06 Aldactone - PO 25 mg BID [facility] Administration Thiamine HCl 100 mg 08/05/17 10:00 08/11/17 09:05 Vitamin B1 - PO 100 mg DAILY [facility] Administration Trazodone HCl 50 mg 08/05/17 22:00 08/10/17 22:34 Desyrel - PO 50 mg HS [facility] Administration Venlafaxine HCl 75 mg 08/05/17 08:00 08/11/17 09:09 Effexor Xr - PO 75 mg DAILY@0800 [facility] Administration Laboratory Results - last 24 hr 08/10/17 08/11/17 08:18 06:30 Sodium 137 Potassium 4.5 Chloride 96 L Carbon Dioxide 31 Anion Gap 10 BUN 25 H Creatinine 0.6 Random Glucose 133 H Calcium 9.1 LD Total 148 144 Microbiology 08/05/17 06:08 Nasopharyngeal Swab Influenza Types A,B Antigen (LUCI) - Final 08/05/17 06:08 Nasopharyngeal Swab - Final ASSESSMENT AND PLAN: 32 yo F with PMH eating disorder, Manchausen's syndrome, gastroparesis and HTN admitted with hypoxia/shortness of breath suspected from laryngeal spasms/ irritation from purging. -Acute hypoxic respiratory failure, concern for laryngospasms or irritation from purging -Arytenoid erythema/edema, suspected from GERD. 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 CTA neg x 2. Cardiology/pulmonary input appreciated. V/q scan. However suspected hypoventilation, bedside spirometry with combined restrictive/constrictive pattern. Change to prednisone 40 m daily with taper. s/p laryngoscopy with arytenoid edema consistent with GERD. Protonix to BID. Will need eventual EGD/GI input once oxygenation/BP have improved. ?Azithromycin for gastroparesis, no prior EGD per discussion with patient and Karen Thomas SANITATION LEAD at the facility. Offered inpatient GI input for possible EGD, patient declines currently, would want to pursue outpatient. Currently tolerating diet well with no GI concerns, will place on PPI BID and outpatient GI follow up. Recurrent leucocytosis, suspect steroid induced 2D echo results reviewed. Per discussion with PCP, 'white coat hypertension', seems likely etiology for her refractory HTN, continue clonazepam, aldactone, hydralazine. Continue trazodone/venlafaxine. Discussedwith PCP Orquidea Carrillo (ph: [phone] and fx: [phone]), recommends dc on oxygen as long as stable and will closely follow patient outpatient and if fails to improved over next few weeks, aware to consider High resolution CT//V/q scan/additional testing as indicated. Pulmonary input appreciated. Discussed with Karen Thomas NP, will follow up if patient able to return with oxygen and prednisone taper. Dispo planning pending approval from the facility. Discussed with patient and all questions answered.
[2017-08-11] MEDS ORDERED: LISINOPRIL 5 MG TABLET (FP) PO ONE (14:18)
--- NOTE | 2017-08-11 15:51 | PN ---
Progress Note (short form) - Note Progress Note: seen and examined feels much better. Ready to be discharged today Constitutional: Yes: Calm Eyes: Yes: Conjunctiva Clear HENT: Yes: Atraumatic, Normocephalic Neck: Yes: Supple Cardiovascular: Yes: Regular Rate and Rhythm Respiratory: Yes: Regular, Cough, Poor Air Entry, Wheezes Gastrointestinal: Yes: Normal Bowel Sounds, Soft. No: Abdomen, Obese Extremities: Yes: WNL Edema: No Neurological: Yes: Alert, Oriented Last Vital Signs Temp Pulse Resp BP Pulse Ox 98.0 F 113 H 20 145/112 98 08/11/17 14:22 08/11/17 14:22 08/11/17 14:22 08/11/17 14:22 08/11/17 09:00 CBC, BMP 08/10/17 08:18 08/10/17 08:18 Current Medications Generic Name Dose Route Start Last Admin Trade Name Freq PRN Reason Stop Dose Admin Albuterol Sulfate 1 amp 08/06/17 13:38 08/06/17 13:03 Ventolin 0.042trength) - NEB 1 amp Q4H PRN Administration SHORT OF BREATH/WHEEZING Albuterol/Ipratropium 1 amp 08/10/17 16:00 08/11/17 11:11 Duoneb - NEB 1 amp RQID [facility] Administration Clonazepam 0.5 mg 08/05/17 10:00 08/11/17 09:05 Klonopin - PO 0.5 mg DAILY [facility] Administration Clonazepam 1.25 mg 08/05/17 22:00 08/10/17 22:35 Klonopin - PO 1.25 mg HS [facility] Administration Enoxaparin Sodium 40 mg 08/05/17 10:00 08/11/17 09:04 Lovenox - SQ 40 mg DAILY [facility] Administration Fluvoxamine Maleate 400 mg 08/05/17 19:00 08/10/17 18:17 Luvox - PO 400 mg DAILY@1900 [facility] Administration Guaifenesin 10 ml 08/05/17 15:12 08/06/17 21:46 Robitussin - PO 10 ml Q4H PRN Administration COUGH Lisinopril 5 mg 08/12/17 10:00 Prinivil PO DAILY [facility] Pantoprazole Sodium 40 mg 08/08/17 10:00 08/11/17 09:06 Protonix - PO 40 mg BID [facility] Administration Polyethylene Glycol 17 gm 08/05/17 10:00 08/11/17 09:15 Miralax (For Daily Use) - PO 17 gm BID [facility] Administration Prednisone 40 mg 08/12/17 10:00 Deltasone - PO DAILY [facility] Spironolactone 25 mg 08/05/17 10:00 08/11/17 09:06 Aldactone - PO 25 mg BID [facility] Administration Thiamine HCl 100 mg 08/05/17 10:00 08/11/17 09:05 Vitamin B1 - PO 100 mg DAILY [facility] Administration Trazodone HCl 50 mg 08/05/17 22:00 08/10/17 22:34 Desyrel - PO 50 mg HS [facility] Administration Venlafaxine HCl 75 mg 08/05/17 08:00 08/11/17 09:09 Effexor Xr - PO 75 mg DAILY@0800 [facility] Administration polycythemia secondary to Hypoxia. especially considering she had Normal numbers to begin with Reviewed Pulm note Pt to be discharged today to her treatment center. Pt mentioned that they monitor her labs
[2017-08-11 16:54] VITALS: BP 149/86; PULSE 88; TEMP 98.4
--- NOTE | 2017-08-11 21:16 | DS ---
Physical Exam: SUBJECTIVE: Patient seen and examined by me this - No major overnight events. Afebrile, VSS. Pt states dyspnea is slightly improved, able to ambulate around room with no further episodes of SOB. Denies f /c/n/v/d, chest pain, abdominal pain, WONG, vision changes. Endorses occasional dry cough, decreased appetite and mild fatigue. Very anxious to return to [facility] eating disorder program. -Attending Dr. Jo spoke at length with LAILA Jones at [facility] this AM over the phone during rounds. Explained at length the medical necessity for discharge with home O2 in interim period, recounted pulmonology team evaluation and findings over phone. POWER WHEELCHAIR MECHANIC initially resistant to discharge with O2, stated transfer back to program with O2 will require medical stenographer approval. Later in PM, transfer approved by wireless construction manager. Pt discharged with O2, prednisone taper and refill on Albuterol nebs. OBJECTIVE: Vital Signs Intake & Output 08/08/17 08/09/17 08/10/17 08/11/17 23:59 23:59 23:59 23:59 Intake Total 200 320 660 Balance 200 320 660 Period Temp Pulse Resp BP Sys/Coulter Pulse Ox Last 24 Hr 97.6 F-98.4 F 72-117 18-20 116-149/83-112 95-98 PHYSICAL EXAM GENERAL: A&Ox3, young woman, lying in bed in NAD HEAD: Normal with no signs of trauma. EYES: PERRL, extraocular movements intact, sclera anicteric, conjunctiva clear. No ptosis. ENT: Ears normal, nares patent, oropharynx clear without exudates, moist mucous membranes. NECK: Still with I/E stridor, supple, no JVD LUNGS: Lung with I/E wheezing, vesicular breath sounds, no crackles rhonchi HEART: Regular rate and rhythm, S1, S2 without murmur, rub or gallop. ABDOMEN: Soft, nontender, nondistended, normoactive bowel sounds, no guarding, no rebound, no hepatosplenomegaly, no masses. EXTREMITIES: 2+ pulses, warm, well-perfused, no edema. NEUROLOGICAL: Cranial nerves II through XII grossly intact. Normal speech, gait not observed. LABS Laboratory Results - last 24 hr CBC, BMP 08/10/17 08:18 08/10/17 08:18 08/11/17 06:30 LD Total 144 Microbiology 08/05/17 06:08 Nasopharyngeal Swab Influenza Types A,B Antigen (LUCI) - Final 08/05/17 06:08 Nasopharyngeal Swab - Final CXR 08/04 - No pathology. prior spinal fusion CTA 08/05- No pulmonary emboli ECHO 08/07 - Normal LV/RV function, no PFO, no valvulopathy. EF 55-60% CXR 08/09 - IMPRESSION: Shallow inspiration with low lung volumes limiting evaluation of the lung bases. No evidence of airspace consolidation, pulmonary vascular congestion or pleural effusion. Chest CT 08/09 - IMPRESSION: Limited examination of the segmental and subsegmental pulmonary arteries in bilateral lower lobes secondary to streak artifact from Thakur rods. No definite pulmonary artery embolus through the segmental pulmonary artery branches. No evidence of pneumonia. AB US 08/10 - No pathology noted Consults: Cardiology - Seen by Dr. Cloud Pulmonology - Seen by Dr. Santos Hematology - Seen by Dr. Bello ENT - Seen by Dr. Jackson GI - Seen by Dr. Escobar HOSPITAL COURSE: Prehospital course: 32F pmh eating disorder, anxietry, HTN presents with SOB for past week progressively worse. SHe came to an urgent care facility where they found her to be hypoxic and tachycardia and sent her to ED. She denies fevers, has a dry cough, chest pain with cough. no urinary or bowel changes. Reports a prolonged hospital stay for a month a few years ago in [place] where they did extensive evaluation for her HTN but was unrevealing. currently lives in a facility for treatment of eating disorder Hospital course: Date of Admission:08/05/17 Date of Discharge: 08/11/17 Pt is medically cleared for discharge back to [facility] with outpt f/u scheduled with our pulmonology team in two weeks. Discharge Summary Reason For Visit: SOB Condition: Stable - Instructions Diet, Activity, Other Instructions: During your stay at [facility], you were treated for respiratory distress secondary to suspected bronchitis. You received antibiotics, IV steroids and oxygen support and your respiratory status has since improved. You are being discharged home with oxygen and follow-up with our pulmonary team in two weeks. Medications: The following medications were added to your regimen. Please take them as described below: Prednisone 40mg, take four tablets by mouth once a day for three days, (08/12-08/14 ) Prednisone 30mg, take three tablets by mouth once a day for three days, (08/15-08/17 ) Prednisone 20mg, take two tablets by mouth once a day for three days, (08/18-08/20) Prednisone 10mg, take one tablets by mouth once a day for three days, (08/21-08/23) Then stop taking this medication. Protonix 40mg, take one pill by mouth once a day Albuterol, take 1 amp via nebulizer, every four hours until your symptoms resolved when you become short of breath. Please continue to take all other home medications as previously directed. Follow-ups: Please follow-up with your primary care physician in one week for further management of your medications. Please call their office to schedule an appointment. Your hospital course has been discussed with your PCP Dr. Carrillo and she will be following up and address additional testing including nuclear scan/high resolution CT scan and further work up accordingly. Please follow-up with our retail salesworker, Dr. Santos, in two weeks for further management of your pulmonary care. His contact number has been provided in this packet. Please call his office to make an appointment. You are being sent home with home oxygen therapy per our pulmonary team recommendations due to persistent drop in blood oxygen levels with exertion. Please take use your home oxygen as directed below. DO NOT STORE YOU OXYGEN TANK NEAR ANY OPEN FLAME OR IGNITION SOURCE IT IS HIGH FLAMMABLE. Diet/exercise: Please utilize O2 when ambulating at home. Based on recommendations from our respiratory therapy and pulmonary team, we suggest you use 2L of O2 via nasal cannula at rest and with ambulation. You will likely only need this oxygen for a short time. Please follow-up with our pulmonary team for further modification of this treatment. Please return to the hospital if you experience any of the following symptoms: - Worsening shortness of breath - Persistent, productive cough - Tightness or swelling in your throat that makes it difficult to breath - Any new or concerning symptoms Referrals: Nigel Santos MD [Staff Physician] - 2 Weeks Disposition: [facility] - Home Medications Comprehensive Discharge Medication List: Ambulatory Orders Azithromycin 250 mg PO DAILY 08/04/17 Clonazepam [Klonopin] 1.25 mg PO BID 08/04/17 Desvenlafaxine Succinate [Pristiq] 25 mg PO DAILY 08/04/17 Fluvoxamine Maleate [Luvox -] 400 mg PO DAILY 08/04/17 Lisinopril 5 mg PO PRN 08/04/17 Spironolactone 25 mg PO DAILY 08/04/17 Albuterol Sulfate 0.042% [Ventolin 0.042% (Half-Strength) -] 1 amp NEB Q4H PRN # 30 amp 08/11/17 Pantoprazole Sodium [Protonix -] 40 mg PO DAILY #30 tablet.ec 08/11/17 predniSONE [Deltasone -] 10 mg PO DAILY #30 tablet 08/11/17 - Discharge Referral Referred to [facility] No
[2017-08-12] MEDS ORDERED: LISINOPRIL 5 MG TABLET (FP) PO SCH (10:00)
[2017-08-12] MEDS ORDERED: predniSONE 20 MG TABLET (UD) PO SCH (10:00)
== END 2017-08-11 16:15 | DRG 189 ==
LOC: JER 19:29 → JERBED 08-05 03:08 → OBSVTOIN 08-05 05:10 → J4S 08-05 08:45
PROVIDERS: ADMIT Internal Medicine; ATTEND Hospitalist
PROC: 0CJS8ZZ Inspection of Larynx, Via Natural or Artificial Opening Endoscopic (ICD-10-PCS; principal; 2017-08-07)
DX: J96.01 Acute respiratory failure with hypoxia (principal); J96.02 Acute respiratory failure with hypercapnia; J20.9 Acute bronchitis, unspecified; K21.9 Gastro-esophageal reflux disease without esophagitis; I16.0 Hypertensive urgency; R00.1 Bradycardia, unspecified; F41.8 Other specified anxiety disorders; K31.84 Gastroparesis; F50.9 Eating disorder, unspecified
CPT/HCPCS: 36415; 36600; 71045-TC-FY; 71260-TC; 71275-TC; 76700-TC; 80048; 80053; 81003; 82375; 82803; 82962; 83050; 83615; 83735; 84703; 85025; 85027; 85379; 87804; 93005; 93010; 93306-TC; 94640; 94761; 99283-25; G0378; J7030

== ENCOUNTER 2017-09-05 00:04 | Emergency (ER) | payer BC ==
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
[2017-09-05 00:30] VITALS: TEMP 97.8; BMI 21.4
[2017-09-05] MEDS ORDERED: methylPREDNISolone NA SUCC 125 MG/2 ML VIAL IVPB ONE (00:41)
[2017-09-05] MEDS ORDERED: LISINOPRIL 5 MG TABLET (FP) PO ONE (00:42)
[2017-09-05] MEDS: ALBUTEROL SO4 2.5/IPRATROPIUM 0.5 INH SOL 3 ML VIAL.NEB. NEB SCH ×2 (00:42→02:10)
[2017-09-05] MEDS ORDERED: LABETALOL HCL 5 MG/1 ML (100MG/20 ML VIAL) IVPUSH ONE (00:44)
--- NOTE | 2017-09-05 00:57 | PDOC ---
Attending Attestation - Physicial Exam PE: 09/05/17 01:14 General Appearance: (+) Thin, who appeared to be holding breath during exam. No acute distress, well nourished, well developed Head: Atraumatic Eyes: Pupils equal reactive round, extraocular movement intact Cardiac: (+) Tachycardic and regular rhythm, no murmurs, no rubs, no gallops Lungs: Clear to auscultation bilateral, good air movement bilaterally Abdomen: Soft, nondistended, normal bowel sounds, nontender to palpation Extremities: Full range of motion to all extremities, no cyanosis, clubbing, or edema Skin: Warm and dry, no rashes or lesions, no rash, no petechiae Neuro: AOX3; Cranial Nerves 2-12 grossly intact. Psych: Normal mood, normal affect <Namrata Dao - Last Filed: 09/05/17 01:14> - Resident Resident Name: Caron Soriano I - ED Attending Attestation I have performed the following: I have examined & evaluated the patient, The case was reviewed & discussed with the resident, I agree w/resident's findings & plan, Exceptions are as noted - HPI HPI: 09/05/17 00:54 32-year-old female presents with chest pain, shortness of breath. Patient presents tachycardic and hypertensive. She did not take her high blood pressure medicine today Medical history significant for anorexia, hypertension, anxiety She has been to this hospital several times in the past month for the same complaints and had an echo done in May and cardiology and pulmonary consults. She is CT of the chest last month that was negative for any pulmonary embolus or pericardial effusion. Echo showed normal LV function Patient is from [place] and her PCP is in [place]. She is in this area for the past 5 months. She is being treated for her anorexia and is in a current residential program for treatment 09/05/17 01:13 - Medical Decision Making 09/05/17 17:01 pt signed out to Dr Isaak Heck <Ana Rosa Ortiz - Last Filed: 09/05/17 17:02> Heart Score/ECG Review #1 09/05/17 01:14 EKG performed at [12:21] demonstrates rate of [105], Sinus tachycardia. Nonspecific ST abnormality. <Namrata Dao - Last Filed: 09/05/17 01:14>
[2017-09-05 02:12] LABS: BASO % 0.3 % (0-2.0); EOS % 1.4 % (0-4.5); HEMATOCRIT 38.1 % (32.4-45.2); HEMOGLOBIN 13.4 GM/dL (10.7-15.3); LYMPH % 20.8 % (8-40); MCH 33.2 pg (25.7-33.7); MCHC 35.2 g/dl (32.0-36.0); MEAN CELL VOLUME 94.2 fl (80-96); MEAN PLT VOLUME 7.5 fl (7.5-11.1); NEUT % 67.5 % (42.8-82.8); PLATELET COUNT 197 K/MM3 (134-434); RBC 4.04 M/mm3 (3.60-5.2); RDW 11.6 % (11.6-15.6); WHITE BLOOD COUNT 7.8 K/mm3 (4.0-10.0)
[2017-09-05 02:40] LABS: ARTERIAL BLD GAS O2 SATURATION 90.3 % (90-98.9); ARTERIAL BLOOD GAS BASE EXCESS 1.8 meq/l (-2-2); ARTERIAL BLOOD GAS PCO2 59.6 mmHg (35-45); ARTERIAL BLOOD GAS PO2 63.8 mmHg (80-100); ARTERIAL BLOOD GAS pH 7.31 (7.35-7.45)
[2017-09-05 02:42] LABS: ALLENS TEST POSITIVE
[2017-09-05 02:46] LABS: ALBUMIN 3.6 g/dl (3.4-5.0); ALK PHOS 46 U/L (45-117); ANION GAP 10 (8-16); BILIRUBIN,TOTAL 0.2 mg/dL (0.2-1.0); BLOOD UREA NITROGEN 14 mg/dL (7-18); CALCIUM 8.4 mg/dL (8.5-10.1); CHLORIDE 104 mmol/L (98-107); CO2 29 mmol/L (21-32); CREATININE 0.6 mg/dL (0.55-1.02); GLUCOSE,RANDOM 113 mg/dL (74-106); POTASSIUM 3.5 mmol/L (3.5-5.1); SGOT/AST 11 U/L (15-37); SGPT/ALT 26 U/L (12-78); SODIUM 143 mmol/L (136-145); TOT PROT 6.5 g/dl (6.4-8.2)
[2017-09-05 02:50] LABS: URINE AMPHETAMINES NEGATIVE ng/ml (CUTOFF=500); URINE BARBITURATES NEGATIVE ng/ml (CUTOFF=200); URINE BENZODIAZEPINES NEGATIVE ng/ml (CUTOFF=200)
[2017-09-05 02:51] LABS: COCAINE, UR NEGATIVE ng/ml (CUTOFF=300); METHADONE, UR NEGATIVE ng/ml (CUTOFF=300); OPIATES, URI NEGATIVE ng/ml (CUTOFF=300); PHENCYCLIDINE,URINE NEGATIVE ng/ml (CUTOFF=25)
[2017-09-05 05:34] VITALS: BP 119/108
--- NOTE | 2017-09-05 05:51 | HP ---
CHIEF COMPLAINT: Sent for Shortness of BReath PCP: None HISTORY OF PRESENT ILLNESS: 32 F with pmhx. of anxiety do, htn, acute bronchitis (recent hospitlization w [facility]), who is in home for anorexia who presents with shortness of breath. States she has had a new cough for one week. No chest pain or pressure. States she had V/Q scan earlier. CTA also showed no PE. No chest pain or pressure. No N, V, D. ER course was notable for: (1) EKG: Stach (2) ABG with Hypoxia (3) V/Q SCAN DONE 09/04 - NO PE Recent Travel:NO PAST MEDICAL HISTORY: As Above PAST SURGICAL HISTORY: [place] Social History: Smoking:No Alcohol:No Drugs: No Family History:n/c Allergies lamotrigine [From Lamictal] Allergy (Verified 09/05/17 00:16) HOME MEDICATIONS: Home Medications Medication Instructions Recorded Azithromycin 250 mg PO DAILY 08/04/17 Clonazepam [Klonopin] 1.25 mg PO BID 08/04/17 Desvenlafaxine Succinate [Pristiq] 25 mg PO DAILY 08/04/17 Fluvoxamine Maleate [Luvox -] 400 mg PO DAILY 08/04/17 Lisinopril 5 mg PO PRN 08/04/17 Spironolactone 25 mg PO DAILY 08/04/17 Albuterol Sulfate 0.042% [Ventolin 1 amp NEB Q4H PRN #30 amp 08/11/17 0.042% (Half-Strength) -] Pantoprazole Sodium [Protonix -] 40 mg PO DAILY #30 tablet.ec 08/11/17 predniSONE [Deltasone -] 10 mg PO DAILY #30 tablet 08/11/17 REVIEW OF SYSTEMS CONSTITUTIONAL: Absent: fever, chills, diaphoresis, generalized weakness, malaise, loss of appetite, weight change HEENT: Absent: rhinorrhea, nasal congestion, throat pain, throat swelling, difficulty swallowing, mouth swelling, ear pain, eye pain, visual changes CARDIOVASCULAR: Absent: chest pain, syncope, palpitations, irregular heart rate, lightheadedness , peripheral edema RESPIRATORY: Absent: cough, + shortness of breath, dyspnea with exertion, orthopnea, wheezing , stridor, hemoptysis GASTROINTESTINAL: Absent: abdominal pain, abdominal distension, nausea, vomiting, diarrhea, constipation, melena, hematochezia GENITOURINARY: Absent: dysuria, frequency, urgency, hesitancy, hematuria, flank pain, genital pain MUSCULOSKELETAL: Absent: myalgia, arthralgia, joint swelling, back pain, neck pain SKIN: Absent: rash, itching, pallor HEMATOLOGIC/IMMUNOLOGIC: Absent: easy bleeding, easy bruising, lymphadenopathy, frequent infections ENDOCRINE: Absent: unexplained weight gain, unexplained weight loss, heat intolerance, cold intolerance NEUROLOGIC: Absent: headache, focal weakness or paresthesias, dizziness, unsteady gait, seizure, mental status changes, bladder or bowel incontinence PSYCHIATRIC: Absent: anxiety, depression, suicidal or homicidal ideation, hallucinations. PHYSICAL EXAMINATION Vital Signs - 24 hr 09/05/17 09/05/17 09/05/17 00:04 00:16 01:51 Temperature 97.8 F Pulse Rate 100 H 78 Pulse Rate [ 102 H Left Radial] Respiratory 20 Rate Blood Pressure 214/175 Blood Pressure 95/78 [Left Arm] O2 Sat by Pulse 99 100 99 Oximetry (%) 09/05/17 09/05/17 09/05/17 03:25 03:35 04:49 Temperature Pulse Rate Pulse Rate [ 108 H Left Radial] Respiratory 24 Rate Blood Pressure Blood Pressure 121/81 120/88 135/87 [Left Arm] O2 Sat by Pulse 99 99 Oximetry (%) 09/05/17 05:33 Temperature Pulse Rate Pulse Rate [ 135 H Left Radial] Respiratory 18 Rate Blood Pressure Blood Pressure 119/108 [Left Arm] O2 Sat by Pulse 98 Oximetry (%) GENERAL: Awake, alert, and fully oriented, in no acute distress. HEAD: Normal with no signs of trauma. EYES: Pupils equal, round and reactive to light, extraocular movements intact, sclera anicteric, conjunctiva clear. No lid lag. EARS, NOSE, THROAT: Ears normal, nares patent, oropharynx clear without exudates. Moist mucous membranes. NECK: Normal range of motion, supple without lymphadenopathy, JVD, or masses. LUNGS: Breath sounds equal, clear to auscultation bilaterally. No wheezes, and no crackles. No accessory muscle use. HEART: Regular rate and rhythm, normal S1 and S2 without murmur, rub or gallop. ABDOMEN: Soft, nontender, not distended, normoactive bowel sounds, no guarding, no rebound, no masses. No hepatomegaly or splenomegaly. MUSCULOSKELETAL: Normal range of motion at all joints. No bony deformities or tenderness. No CVA tenderness. UPPER EXTREMITIES: 2+ pulses, warm, well-perfused. No cyanosis. No clubbing. No peripheral edema. LOWER EXTREMITIES: 2+ pulses, warm, well-perfused. No calf tenderness. No peripheral edema. NEUROLOGICAL: Cranial nerves II-XII intact. Normal speech. Normal gait. PSYCHIATRIC: Cooperative. Good eye contact. Appropriate mood and affect. SKIN: Warm, dry, normal turgor, no rashes or lesions noted, normal capillary refill. Laboratory Results - last 24 hr 09/05/17 09/05/17 09/05/17 02:00 02:00 02:00 WBC 7.8 RBC 4.04 Hgb 13.4 D Hct 38.1 D MCV 94.2 MCH 33.2 MCHC 35.2 RDW 11.6 Plt Count 197 MPV 7.5 Neutrophils % 67.5 D Lymphocytes % 20.8 D Monocytes % 10.0 D Eosinophils % 1.4 D Basophils % 0.3 Anticoagulation Therapy Puncture Site ABG pH ABG pCO2 at Pt Temp ABG pO2 at Pt Temp ABG HCO3 ABG O2 Sat (Measured) ABG O2 Content ABG Base Excess Michael Test O2 Delivery Device Oxygen Flow Rate Vent Mode Vent Rate Mechanical Rate Pressure Support Vent Sodium Potassium Chloride Carbon Dioxide Anion Gap BUN Creatinine Creat Clearance w eGFR Random Glucose Calcium Total Bilirubin AST ALT Alkaline Phosphatase Troponin I < 0.02 Total Protein Albumin Serum , Qual Negative Opiates Screen Methadone Screen Barbiturate Screen Phencyclidine Screen Ur Amphetamines Screen MDMA (Ecstasy) Screen Benzodiazepines Screen Cocaine Screen U Marijuana (THC) Screen 09/05/17 09/05/17 09/05/17 02:00 02:20 02:21 WBC RBC Hgb Hct MCV MCH MCHC RDW Plt Count MPV Neutrophils % Lymphocytes % Monocytes % Eosinophils % Basophils % Anticoagulation Therapy No Result Required. Puncture Site Right radial ABG pH 7.31 L ABG pCO2 at Pt Temp 59.6 H ABG pO2 at Pt Temp 63.8 L ABG HCO3 29.1 H ABG O2 Sat (Measured) 90.3 ABG O2 Content 17.1 ABG Base Excess 1.8 Michael Test Positive O2 Delivery Device No Result Required. Oxygen Flow Rate No Vent Mode Room air Vent Rate No Result Required. Mechanical Rate No Result Required. Pressure Support Vent No Result Required. Sodium 143 Potassium 3.5 Chloride 104 Carbon Dioxide 29 Anion Gap 10 BUN 14 Creatinine 0.6 Creat Clearance w eGFR > 60 Random Glucose 113 H Calcium 8.4 L Total Bilirubin 0.2 D AST 11 L ALT 26 Alkaline Phosphatase 46 Troponin I Total Protein 6.5 Albumin 3.6 Serum , Qual Opiates Screen Negative Methadone Screen Negative Barbiturate Screen Negative Phencyclidine Screen Negative Ur Amphetamines Screen Negative MDMA (Ecstasy) Screen Negative Benzodiazepines Screen Negative Cocaine Screen Negative U Marijuana (THC) Screen Negative V/Q SCAN: NO ABNORMALITIES EKG: S TACH ECHO 07/30- EF 50%m Normal ASSESSMENT/PLAN: 32 F with ED Anorexia, GERD who presents with shortness of breath 1.) Acute Hypoxic Respiratory Failure - 02 - Pulm - Nebs PRN - C/W PRednisone 60 - 02 Keep >90 - ? Anxiety-Psych - V/Q SCAN negative - CTA Negative from prior - Echo wnl - Trend trop - Pulm. Consult 2.) GERD - Protonix Place in Obs Hospitalist Screening - Colonoscopy Questionnaire Colonoscopy Questionnaire: Colonoscopy Questionnaire
[2017-09-05] MEDS ORDERED: ALBUTEROL SO4 0.083% IH SOL 2.5 MG/3 ML VIAL.NEB. NEB PRN (05:53)
[2017-09-05] MEDS ORDERED: predniSONE 20 MG TABLET (UD) PO ONE (05:54)
[2017-09-05] MEDS ORDERED: ALPRAZolam 0.25 MG TABLET PO ONE (05:58)
[2017-09-05] MEDS ORDERED: SODIUM CHLORIDE 0.9% 1000 ML INFUS.BAG IV ONE (06:08)
[2017-09-05 06:50] VITALS: PULSE 97
--- NOTE | 2017-09-05 10:15 | EKG ---
Test Reason : Blood Pressure : / mmHG Vent. Rate : 105 BPM Atrial Rate : 105 BPM P-R Int : 128 ms QRS Dur : 074 ms QT Int : 336 ms P-R-T Axes : 074 077 050 degrees QTc Int : 444 ms POOR DATA QUALITY, INTERPRETATION MAY BE ADVERSELY AFFECTED SINUS TACHYCARDIA NONSPECIFIC ST ABNORMALITY ABNORMAL ECG WHEN COMPARED WITH ECG OF 24-AUG-2017 09:29, NO SIGNIFICANT CHANGE WAS FOUND Confirmed by MD BRIAN, XOCHITL ([id number]) on 09/05/2017 10:14:43 AM Referred By: Confirmed By:XOCHITL TORRES MD
== END 2017-09-05 07:07 | disposition home or self-care (01) ==
LOC: JER 00:04
PROC: 3E0F7GC Introduction of Other Therapeutic Substance into Respiratory Tract, Via Natural or Artificial Opening (ICD-10-PCS; principal; 2017-09-05)
DX: R06.02 Shortness of breath (principal); I10 Essential (primary) hypertension
CPT/HCPCS: 36415; 36600; 71045-TC-FY; 80053; 80307; 82803; 84484; 84703; 85025; 93005; 93010; 99284-25; J7030